=== PATIENT | male | born 1950 | race Caucasian/White ===

== ENCOUNTER 2019-11-30 15:48 | Outpatient (RCR) | payer MEDICARE, OTHER, SELFPAY ==
--- NOTE | 2019-11-30 16:50 | PTOPEVAL ---
Thank you for referring Logan Obrien to [facility]. Please review, sign, date and return this plan of care [facility]. I agree with and certify that the following plan of care is medically necessary. Referring Physician Date Admitting Provider: Attending Provider: Toño Madsen MD Referring Provider: *PT Outpatient Evaluation Start: 11/30/19 16:00 Freq: Status: Active Protocol: Document 11/30/19 16:00 J (Rec: 11/30/19 16:48 [facility] [id number]) Therapy Assessment Status Assessment Status Assessment Status Evaluation Evaluation Information Problem Diagnosis R knee pain Onset 11/27/19 Subjective Information patient reports he has pain in Query Text:As Reported By Patient/ the R knee. he reports he has Family a history of menicus tear 2x with surgery. he reports he has been having pain in the R knee off and on for the past 10 years. however, he reports he has been flared up for about a week. he reports no recent injury to the R knee. he reports he has had an injection to the R knee this week with results of slightly decreased pain. he reports no pain with sleeping. he reports increased pain in the morning . he reports he has increased pain and difficulty walking down his basement stairs. Pain Assessment Timing of Pain Assessment Timing of Pain Assessment Assessment Pain Scale Pain Scale Used Numeric (1 - 10) Self Report Pain Assessment Right Knee(s) Reported Pain Level 6 Pain Description Soreness,Tightness Pain Frequency Chronic,Intermittent Lowest Pain Intensity 3 Greatest Pain Intensity 10 Pain Score Pain Score 6: Self Report Lower Extremity Range of Motion General Lower Extremity Range of Motion Gross Lower Extremity Range of Motion 5 degree bilateral varus Comments deformity of the knees. Knee Range of Motion Right Knee Flexion Range of Motion - Active 104 Knee Extension Range of Motion - Active 5 Query Text: Left Knee Flexion Range of Motion - Active 130 Knee Extension Range of Motion - Active 5 Query Text: Lower Extremity Muscle Strength Testing Hip Strength Bilateral Hip Flexion Strength 4 Good Knee Strength Right Knee Flexion Strength
== END 2019-12-28 10:38 | disposition home or self-care (01) ==
LOC: CHSPT 15:48
PROVIDERS: PCP Internal Medicine; Visit Provider Internal Medicine
DX: M25.561 Pain in right knee (principal)
CPT/HCPCS: 97014; 97110; 97161; G0283

== ENCOUNTER 2020-11-29 15:16 | Outpatient (CLI) | payer MEDICARE, OTHER, SELFPAY ==
--- NOTE | ~2020-11-29 | XR_ITS ---
XR shoulder RT min 2V 11/29/2020 15:48 Indication: Right shoulder pain Procedure: 4 views right shoulder Comparison: No prior studies for comparison. Findings: No fracture, subluxation or dislocation. No significant soft tissue abnormality. No foreign bodies. There is mild osteoarthritis of the acromioclavicular joint. Impression: 1: Mild osteoarthritis of the acromioclavicular joint. Reviewed, dictated and finalized at location B. Impression: 1: Mild osteoarthritis of the acromioclavicular joint.
--- NOTE | ~2020-11-29 | XR_ITS ---
EXAMINATION: XR shoulder LT min 2V DATE: 11/29/2020 15:48 INDICATION: Left shoulder pain. TECHNIQUE: 4 views of left shoulder were obtained. COMPARISON: None. FINDINGS: Bone alignment is normal. No fracture. There is mild osteoarthritis of glenohumeral joint. There are changes of distal clavicle resection. IMPRESSION: 1. Mild left glenohumeral joint osteoarthritis. Reviewed, dictated and finalized at location A.
== END 2020-11-29 15:17 | disposition home or self-care (01) ==
PROVIDERS: PCP Internal Medicine; Visit Provider Internal Medicine
DX: M25.512 Pain in left shoulder (principal); M25.511 Pain in right shoulder
CPT/HCPCS: 73030

== ENCOUNTER 2020-12-19 09:10 | Outpatient (RCR) | payer MEDICARE, OTHER, SELFPAY ==
--- NOTE | 2020-12-19 10:10 | PTOPEVAL ---
Thank you for referring Logan Obrien to [facility].? The patient is scheduled to be seen for therapy? ____x/week for ___ weeks. Please review, sign, date and return this plan of care [facility]. I agree with and certify that the following plan of care is medically necessary. Referring Physician Date Admitting Provider: Attending Provider: Toño Madsen MD Referring Provider: *PT Outpatient Evaluation Start: 12/19/20 08:52 Freq: Status: Active Protocol: Document 12/19/20 08:52 ACR (Rec: 12/19/20 10:09 [facility] [id number]) Therapy Assessment Status Assessment Status Assessment Status Evaluation Evaluation Information Problem Diagnosis B shoulder pain Onset 11/07/20 Subjective Information Patient states a month and a Query Text:As Reported By Patient/ half ago he went to the MD and Family got a cortisone shot in the L shoulder, then had to go back to get a cortisone shot in the R shoulder. The patient states he is getting an MRI for the R shoulder but is unsure when he is getting it. The patient states the R is worse than the L. The patient states he is having difficulty combing his hair, reaching above his head, lifting any objects, and is unable to ride his [employer]. Patient states the pain wakes him up at night . Patient states he has tingling in his L hand, but it has been for 5 years. He states he has some pain in the R armpit region. Prior Level of Function Activity Level (Last 3 Months) Occupation retired Hand Dominance Right Activity of Daily Living Ability Independent Indoor/Home Mobility Independent Community Mobility Independent Stairs Ability Independent Functional Cognition (Planning, Shopping Independent , Taking Medications) Cooking Yes Cleaning Yes Laundry Yes Shopping Yes Driving Yes Pain Assessment Timing of Pain Assessment Timing of Pain Assessment Assessment Pain Scale Pain Scale Used Numeric (1 - 10) Self Report Pain Assessment Left Shoulder(s) Reported Pain Level 0 Pain
--- NOTE | 2020-12-25 10:33 | PCPTNOTE ---
Patient cancelled scheduled appointment this date due to [new complications (bruising) in the R arm. patient had MRI this date. awaiting results, and patient told to hold therapy per referring MD this date until results of MRI are confirmed.]
--- NOTE | 2021-01-10 16:30 | PCPTNOTE ---
Patient is a 70 year old male that participated in 2 skilled therapy visits for B shoulder pain. The patient got an MRI and he has a bicep tendon tear and a rotator cuff tear. Due to this, the patient requires surgery and will be discharged at this time. Thank you, IGGY McadamsT
== END 2020-12-23 18:00 | disposition home or self-care (01) ==
LOC: CHSPT 09:10
PROVIDERS: PCP Internal Medicine; Visit Provider Internal Medicine
DX: M25.512 Pain in left shoulder (principal); M25.511 Pain in right shoulder
CPT/HCPCS: 97014; 97110; 97161; G0283

== ENCOUNTER 2020-12-25 08:59 | Outpatient (CLI) | payer MEDICARE, OTHER, SELFPAY ==
--- NOTE | ~2020-12-25 | MR_ITS ---
EXAMINATION: MR shoulder RT wo con DATE: 12/25/2020 10:05 INDICATION: 6 weeks of right shoulder pain with limited range of motion. TECHNIQUE: Magnetic resonance imaging (MRI) of the right shoulder was performed without intravenous c ontrast. Sequences included axial PD-weighted FS FSE, coronal oblique PD-weighted FS FSE, coronal obl ique T2-weighted FS FSE, sagittal PD-weighted FS FSE, and sagittal T1-weighted SE. COMPARISON: None. FINDINGS: Coracoacromial arch: The acromion undersurface is minimally curved in morphology (type I-II). Small subacromial spur at th e acromial origin of the otherwise normal coracoacromial ligament. Mild to moderate acromioclavicular osteoarthritis with small amount of heterotopic ossification along the thickened cephalad joint caps ule. Rotator cuff: Mild supraspinatus and moderate infraspinatus tendinopathy. There is a full-thickness tear at the cri tical zone of the supraspinatus tendon with the lateral margin located 2 cm from the superior facet f ootplate. There is an additional 1.8 cm medial retraction of the medial tear margin. The tear continu es to propagate more posteriorly is a partial-thickness articular sided tear of the posterior suprasp inatus and anterior infraspinatus tendons and involves up to 50% the tendon thickness. The teres phyllis r tendon is normal. Anteriorly the full-thickness supraspinatus tendon tear extends to involve the en tire cephalad two thirds of the subscapularis tendon footplate with the tear margin retracted 2.5-3 c m medially from the lesser tuberosity footplate. Severe tendinopathy of the remaining intact caudal t hird of the tendon. Normal there is retraction and mild fatty atrophy of the supraspinatus muscle bel ly. Retraction and severe atrophy of the subscapularis muscle belly. The infraspinatus and teres phyllis r muscle bellies are normal. Biceps tendon, glenoid labrum and glenohumeral cartilage: Complete tear of the long head biceps tendon which is retracted below the level of the intertubercula r groove. Extensive tear of the superior and posterior glenoid labrum beginning anterosuperiorly at t he Glenoid labrum is normal. Glenohumeral cartilage is normal. 1:30 position and extending posteriorl y and inferiorly to the 6:30 position. 8 x 8 x 6 mm para meniscal cyst extending medially from the 11 :00 position of the posterior superior labrum. There is a small intraosseous ganglion cyst at the 8:0 0 region of the posterior rim of the glenoid. There is some chondral fissuring at the anterosuperior quadrant of the glenoid without degenerative subchondral changes. Partial-thickness cartilage loss wi th smooth chondral surface along the inferomedial and superolateral aspects of the humeral head also without degenerative subchondral changes. Fluid: Small glenohumeral joint effusion with mild synovitis at the recesses of the joint space. There is ex tension of fluid through the full-thickness rotator cuff tear into the subacromial/subdeltoid bursa. No loose osteochondral bodies. Bones: Normal marrow signal with no fracture or pathologic marrow replacing process. IMPRESSION: 1. Large rotator cuff tear, full-thickness involving the cephalad two thirds of the subscapularis and the anterior two thirds of the supraspinatus tendon with additional posterior extension as a partial -thickness articular sided of the remaining posterior supraspinatus and the anterior infraspinatus te ndon. 2. Mild glenohumeral osteoarthritis with tear extending from the anterosuperior across the posterior superior to the posterior inferior glenoid with small posterior superior meniscal cyst. 3. Mild to moderate glenohumeral osteoarthritis with prominent superior capsular thickening. 4. Complete tear and caudal retraction of the long head biceps tendon. 5. Small right glenohumeral joint effusion.
== END 2020-12-25 09:00 | disposition home or self-care (01) ==
LOC: CHSIMG 09:01
PROVIDERS: PCP Internal Medicine; Visit Provider Internal Medicine
DX: M25.511 Pain in right shoulder (principal)
CPT/HCPCS: 73221

== ENCOUNTER 2021-01-22 14:15 | Emergency (ER) | payer MEDICARE, OTHER, SELFPAY ==
--- NOTE | ~2021-01-22 | XR_ITS ---
EXAMINATION: XR shoulder LT min 2V DATE: 01/22/2021 14:57 INDICATION: Twisting injury with audible pop and lump at the superior left shoulder TECHNIQUE: AP internally and externally rotated, AP oblique externally rotated and transscapular Y vi ews of the left shoulder were obtained. COMPARISON: 11/29/20 FINDINGS: Postoperative change of prior distal left clavicle resection. There is also a likely prior acromiopla sty with small heterotopic ossicles near the anterior tip of the acromion. Alignment is normal. No fr acture. Glenohumeral joint space appears relatively preserved with tiny marginal osteophytes about th e inferior humeral head. Visualized portions of the left lung are clear. IMPRESSION: 1. Mild left glenohumeral osteoarthritis. No acute osseous abnormality. 2. Postoperative change of prior distal left clavicle resection and likely acromioplasty. Reviewed, dictated and finalized at location A. IMPRESSION: 1. Mild left glenohumeral osteoarthritis. No acute osseous abnormality. 2. Postoperative change of prior distal left clavicle resection and likely acro mioplasty.
[2021-01-22 14:30] VITALS: BP 176/91; PULSE 94; RESP 20; TEMP 36.7; O2SAT 97
[2021-01-22] MEDS: fentaNYL CITRATE INJ (*CRX) 100 MCG/2 ML VIAL 50 MCG IV PUSH (14:48)
--- NOTE | 2021-01-22 15:06 | ED.GENADULT ---
HPI - General Adult General Chief complaint: Extremity Injury, Upper Stated complaint: pulled L shoulder out of place Source: patient Mode of arrival: ambulatory Limitations: no limitations History of Present Illness HPI narrative: Logan is a 70M with a PMH of left rotator cuff tear s/p surgery, HLD and HTN that presented to the ED with left shoulder pain. He was pushing something in his garage just before coming to the ED when he had a pop and pain in his left shoulder and a bulge. He had no other injuries. Related Data Home Medications Medication Instructions Recorded Confirmed metronidazole See Rx Instructions .ROUTE .COMPLEX 01/22/21 01/22/21 ramipril 5 mg PO DAILY 01/22/21 01/22/21 rosuvastatin 5 mg PO DAILY 01/22/21 01/22/21 spironolacton-hydrochlorothiaz 1 tablet PO DAILY 01/22/21 01/22/21 testosterone [Fortesta] 1 pump TOPICAL DAILY 01/22/21 01/22/21 Allergies Allergy/AdvReac Type Severity Reaction Status Date / Time Penicillins Allergy Unknown Verified 01/22/21 15:24 Review of Systems Constitutional: Constitutional: Reports no additional constitutional complaints Eyes: Eyes: Reports no additional eye complaints ENT: Reports system reviewed and no additional complaints, except as documented Cardiovascular: Cardiovascular: Reports no additional cardiovascular complaints Respiratory: Respiratory: Reports no additional respiratory complaints Gastrointestinal: Gastrointestinal: Reports no additional gastrointestinal complaints Genitourinary: Genitourinary: Reports no additional male genitourinary complaints Musculoskeletal: Musculoskeletal: Reports as per HPI Integumentary/Breasts: Skin/Breast: Reports system reviewed and no additional complaints, except as docu Neurologic: Reports system reviewed and no additional complaints, except as documented Psychiatric: Psychiatric: Reports no additional psychiatric complaints Endocrine: Endocrine: Reports no additional endocrine complaints Hematologic/Lymphatic: Hematologic/Lymphatic: Reports no additional hematologic/lymphatic complaints Allergic/Immunologic: Allergic/Immunologic: Reports no additional allergic/immunologic complaints [facility] Social History Social History Gender identity (if verbalized by the patient): Male Exam Const: General: no acute distress and alert Orientation/consciousness: patient oriented x3 Limitations: No altered mental status HENMT: Head: normal to inspection Mouth: Yes Normal oral and palatal mucosa present Eyes: Conjunctivae: conjunctivae normal Pupils: Equal, round and reactive pupils present Neck: Neck: normal visual inspection Chest: Chest palpation & inspection: normal inspection of the chest Resp: Effort & Inspection: normal respiratory effort Cardio: Rate: regular rate Skin: General skin exam: normal color Rashes: no rashes Neuro: General: patient oriented x3, moves all extremities, no meningeal signs, no focal motor deficits and CN's II-XI intact bilaterally Extrem: Other: Left upper extremity was held in adduction and the elbow in 90 degrees flexion against the chest with an anterior/inferior bulge on the left shoulder Psych: Appearance: grossly normal Mental Status: mental status grossly normal Course Course Emergency Course: Given 50mcg for the pain. EXAMINATION: XR shoulder LT min 2V DATE: 01/22/2021 14:57 INDICATION: Twisting injury with audible pop and lump at the superior left shoulder TECHNIQUE: AP internally and externally rotated, AP oblique externally rotated and transscapular Y views of the left shoulder were obtained. COM FINDINGS: Postoperative change of prior distal left clavicle resection. There is also a likely prior acromioplasty with small heterotopic ossicles near the anterior tip of the acromion. Alignment is normal. No fracture. Glenohumeral joint space appears relatively preserved with tiny marginal osteophytes about
[2021-01-22 15:33] VITALS: BP 139/78; PULSE 79; RESP 20; TEMP 36.7; O2SAT 97
== END 2021-01-22 15:35 | disposition home or self-care (01) ==
PROVIDERS: Emergency Provider Family Medicine; PCP Internal Medicine
DX: M75.102 Unspecified rotator cuff tear or rupture of left shoulder, not specified as traumatic (principal)
CPT/HCPCS: 73030; 96374; 99283; 99284; A4565; J3010

== ENCOUNTER 2021-02-01 10:37 | Outpatient (CLI) | payer MEDICARE, OTHER, SELFPAY ==
--- NOTE | ~2021-02-01 | MR_ITS ---
EXAMINATION: MR shoulder LT wo con DATE: 02/01/2021 11:29 INDICATION: Weakness and left shoulder pain TECHNIQUE: Magnetic resonance imaging (MRI) of the left shoulder was performed without intravenous co ntrast. Sequences included axial PD-weighted FS FSE, coronal oblique PD-weighted FS FSE, coronal obli que T2-weighted FS FSE, sagittal PD-weighted FS FSE, and sagittal T1-weighted SE. COMPARISON: Left shoulder radiographs dated 01/22/2021 FINDINGS: Evaluation mildly limited by small amount of motion artifact or blurring to some degree on all sequen manfred. Coracoacromial arch: The acromion undersurface is curved in morphology (type II). There is mild thickening of the acromial side of the coracoacromial ligament. Status post distal clavicle resection with widening of the acro mioclavicular interval and small foci of postoperative susceptibility artifact in the overlying soft tissues. Rotator cuff: Severe supraspinatus and infraspinatus tendinopathy. Full-thickness tear which appears to involve the entire supraspinatus and the anterior two thirds of the infraspinatus tendon. The tears occur along the critical zone approximately 1 cm from the footplate with residual frayed tendon material remainin g attached to the footplate. There is approximately 2 cm medial retraction of the frayed medial tear margin which is positioned over the apex of the humeral head. The teres minor tendon is normal. Sever e subscapularis tendinopathy with complete tear of the lesser tuberosity footplate with the bursal si de of the tendon remains tethered laterally by the intact transverse humeral ligament. Similar approx imately 2 cm medial retraction of the articular side of the tear margin which is located at the level of the rim of the glenoid. There is prominent muscular edema within the infraspinatus muscle belly w hich could be reactive or related to associated strain along the myotendinous junction. Moderate atro phy of the subscapularis muscle and mild supraspinatus atrophy. Biceps tendon, glenoid labrum and glenohumeral cartilage: Complete tear of the intra-articular long head biceps tendon with the distal tear margin appearing fr ayed and attenuated at the level of the intertubercular groove. Diffuse tear of the glenoid labrum sp aring only the 3:00-6:30 position of the anteroinferior glenoid labrum. There is partial thickness ch ondral ulceration along the cephalad third of the glenoid and along the posterior rim gallbladder. Th ere is mild subarticular edema at the posterior superior to posterior rim of the glenoid. Cartilage a long the humeral head appears relatively preserved with tiny marginal osteophytes along the inferomed ial rim of the humeral head. Fluid: Small amount of fluid in the subacromial/subdeltoid bursa could be due to either bursitis or decompre ssion of glenohumeral joint effusion through the full-thickness rotator cuff tear defect. No loose os teochondral bodies. Bones: Bone alignment is normal. No fracture or pathologic marrow replacing process. IMPRESSION: 1. Severe rotator cuff tendinopathy with full-thickness tear of the entire supraspinatus and anterior two thirds of the infraspinatus tendon and high-grade partial tear involving all but the bursal side d fibers of the subscapularis tendon. 2. Mild left glenohumeral osteoarthritis with diffuse labral tearing sparing along the anteroinferior glenoid. 3. Status post distal left clavicle resection. Reviewed, dictated and finalized at location A. IMPRESSION: 1. Severe rotator cuff tendinopathy with full-thickness tear of the entire supr aspinatus and anterior two thirds of the infraspinatus tendon and high-grade pa rtial tear involving all but the bursal sided fibers of the subscapularis tendo n.
== END 2021-02-01 10:38 | disposition home or self-care (01) ==
LOC: CHSIMG 10:38
PROVIDERS: PCP Internal Medicine; Visit Provider Internal Medicine
DX: M25.512 Pain in left shoulder (principal); R53.1 Weakness
CPT/HCPCS: 73221

== ENCOUNTER 2021-04-28 12:59 | Outpatient (RCR) | payer MEDICARE, OTHER, SELFPAY ==
--- NOTE | 2021-04-28 14:06 | PTOPEVAL ---
Thank you for referring Logan Obrien to [facility].? The patient is scheduled to be seen for therapy? ____x/week for ___ weeks. Please review, sign, date and return this plan of care [facility]. I agree with and certify that the following plan of care is medically necessary. Referring Physician Date Admitting Provider: Attending Provider: Elias Guallpa, MD Referring Provider: *PT Outpatient Evaluation Start: 04/28/21 13:05 Freq: Status: Active Protocol: Document 04/28/21 13:05 [facility] (Rec: 04/28/21 14:04 [facility] [id number]) Therapy Assessment Status Assessment Status Assessment Status Evaluation Outpatient Past Medical History Cardiovascular History Hx Hypercholesterolemia Yes Evaluation Information Problem Diagnosis L rotator cuff tear, capsular reconstruction Onset 03/06/21 Additional Evaluation Detail quick dash = 40% functionally declined Subjective Information patient reports he injured his Query Text:As Reported By Patient/ showinstonler back in December of this Family year. he had L rotator cuff repair and capsular recontruction on 03/06/21. he reports he was in a sling for several weeks and is now coming to therapy for rehab. patients orders shows arom, aarom, and prom only of the L shoulder at this time. no strengthening. Prior Level of Function Comments Additional Prior Level of Function patient has had issues with Comments the shoulder in the past, and has been injured since December of this year. he reports prior to December, no issues with the L shoulder. Pain Assessment Timing of Pain Assessment Timing of Pain Assessment Assessment Pain Scale Pain Scale Used Numeric (1 - 10) Self Report Pain Assessment Left Shoulder(s) Reported Pain Level 6 Greatest Pain Intensity 8 Pain Score Pain Score 6: Self Report Interventions Used Interventions Used By Clinicians Activity or ADL's,Education, Exercise Upper Extremity Range of Motion General Upper Extremity Range of Motion Gross Upper Extremity Range of Motion R shoulder arom flex = 153 Comments degrees -prom flex = 155 degrees R shoulder arom ER = 85 degrees R shoulde
--- NOTE | 2021-06-16 15:14 | PTOPEVAL ---
Thank you for referring Logan Obrien to [facility].? The patient is scheduled to be seen for therapy? _2___x/week for 8 visits. Please review, sign, date and return this plan of care [facility]. I agree with and certify that the following plan of care is medically necessary. Referring Physician Date Admitting Provider: Attending Provider: Elias Guallpa, Referring Provider: *PT Outpatient Evaluation Start: 04/28/21 13:05 Freq: Status: Active Protocol: Document 06/16/21 13:00 [facility] (Rec: 06/16/21 15:09 [facility] [id number]) Therapy Assessment Status Assessment Status Assessment Status Progress Outpatient Past Medical History Cardiovascular History Hx Hypercholesterolemia Yes Evaluation Information Problem Subjective Information Pt. reports that his pain Query Text:As Reported By Patient/ levels were continuing to Family decrease, however he fell and bump the right shoulder but noticed increased left shoulder pain. He reports that his bigesst complcation is weakness with reaching overhead. He states that he would like to continue to focus on improving his strength. Pain Assessment Timing of Pain Assessment Timing of Pain Assessment Assessment Pain Scale Pain Scale Used Numeric (1 - 10) Self Report Pain Assessment Left Shoulder(s) Reported Pain Level 2 Pain Score Pain Score 2: Self Report Interventions Used Interventions Used By Clinicians Activity or ADL's,Education, Electrical Stimulation, Exercise,Heat Upper Extremity Range of Motion General Upper Extremity Range of Motion Gross Upper Extremity Range of Motion -left shoulder flexion AROM Comments seated 148 degrees with increased scapular elevation noted at mid range -Pt. reaches to the CT junction with combined left shoulder flexion and ER -Pt. reaches to the mid thoracic region with combined left shoulder IR and extension . Upper Extremity Muscle Strength Testing General Upper Extremity Strength Gross Upper Extremity Strength Comments -left shoulder flexion 3/5 -left shoulder ER 3+/5 -left shoulder IR 4/5 -left shoulder abduction 3/5 General Exercise General
--- NOTE | 2021-07-18 14:48 | PTOPEVAL ---
Thank you for referring Logan Obrien to [facility] [place].? The patient is scheduled to be seen for therapy? ____x/week for ___ weeks. Please review, sign, date and return this plan of care KSENIA. I agree with and certify that the following plan of care is medically necessary. Referring Physician Date Admitting Provider: Attending Provider: Elias Guallpa, Referring Provider: *PT Outpatient Evaluation Start: 04/28/21 13:05 Freq: Status: Active Protocol: Document 07/18/21 13:10 ACR (Rec: 07/18/21 14:48 ACR [id number]) Therapy Assessment Status Assessment Status Assessment Status Progress Outpatient Past Medical History Cardiovascular History Hx Hypercholesterolemia Yes Evaluation Information Problem Diagnosis L RTC repair Onset 03/06/21 Subjective Information Patient states that he is Query Text:As Reported By Patient/ feeling pretty good but it is Family still pretty weak. He states that lifting a gallon of milk is pretty difficult for him. He states that he can raise his arm above his head, but it is weak. Patient feels that he can do everything at home and states that he knows he has more healing ahead of him. Pain Assessment Timing of Pain Assessment Timing of Pain Assessment Assessment Pain Scale Pain Scale Used Numeric (1 - 10) Self Report Pain Assessment Left Shoulder(s) Reported Pain Level 0 Lowest Pain Intensity 0 Greatest Pain Intensity 5 Pain Score Pain Score 0: Self Report Interventions Used Interventions Used By Clinicians Activity or ADL's,Exercise Upper Extremity Range of Motion General Upper Extremity Range of Motion Gross Upper Extremity Range of Motion shoulder flexion L AROM: 153 Comments with shoulder elevation noted ER functional reach: CT junction IR functional reach: to mid thoracic region Lower Extremity Muscle Strength Testing General Lower Extremity Strength Gross Lower Extremity Strength L shoulder flexion: 3/5 L shoulder ER: 3+/5 L shoulder IR: 4/5 L shoulder abduction General Exercise General Exercises Exercise Description -lifting 2lb ball on 3 shelves Query Text:Record Sets, Reps, with assist to attain top Resistance, and Position shelf and eccentric control back down x 10 and then x 5
== END 2021-07-18 15:38 | disposition home or self-care (01) ==
LOC: CHSPT 12:59
PROVIDERS: Visit Provider Orthopaedic Surgery Hand Surgery
DX: M75.121 Complete rotator cuff tear or rupture of right shoulder, not specified as traumatic (principal)
CPT/HCPCS: 97014; 97110; 97161; 97530; G0283

== ENCOUNTER 2021-11-10 13:55 | Outpatient (CLI) | payer MEDICARE, OTHER, SELFPAY ==
[2021-11-10 15:36] LABS: Basophils Absolute Auto 0.1 K/mm3 (0.0-0.1); Basophils Percent Auto 0.7 % (0.2-1.2); Eosinophils Absolute Auto 0.1 K/mm3 (0-0.3); Eosinophils Percent Auto 1.2 % (0-4.4); Hematocrit 42.1 % (42.0-52.0); Immature Granulocyte Absolute 0.05 K/mm3 (0.00-0.031); Immature Granulocyte Percent A 0.6 % (0-0.5); Lymphocytes Absolute Auto 1.19 K/mm3 (0.9-3.2); Lymphocytes Percent Auto 13.9 % (18.3-44.2); Mean Corpuscular HGB Conc 33.3 g/dl (32-36); Mean Corpuscular Hemoglobin 28.9 pg (26-34); Mean Platelet Volume 9.3 fl (7.4-10.4); Monocytes Absolute Auto 0.7 K/mm3 (0.1-0.6); Monocytes Percent Auto 8.6 % (2.6-8.5); Neutrophils Absolute Auto 6.5 K/mm3 (1.3-6.7); Platelet Count Result 201 k/mm3 (150-375); Red Blood Count 4.84 M/mm3 (4.6-6.20); Red Cell Distribution Width 14.5 % (11.5-14.5); White Blood Count 8.6 K/mm3 (4.5-10.0)
[2021-11-10 15:55] LABS: Albumin Level 4.7 g/dL (3.5-5.1); Anion Gap 5 mmol/L (8-16); Blood Urea Nitrogen 29 mg/dL (9-20); Calcium 10.2 mg/dL (8.4-10.2); Carbon Dioxide 31 mmol/L (22-30); Chloride 99 mmol/L (98-107); Estimated Glomerular Filt Rate 60; Glucose 111 mg/dL (65-110); Sodium 135 mmol/L (137-145)
[2021-11-10 16:04] LABS: Urine Cotinine NEGATIVE
[2021-11-10 16:09] LABS: Hemoglobin A1C 5.8 % (<5.7)
== END 2021-11-10 13:56 | disposition home or self-care (01) ==
PROVIDERS: PCP Internal Medicine; Visit Provider Orthopaedic Surgery
DX: M17.11 Unilateral primary osteoarthritis, right knee (principal); Z01.818 Encounter for other preprocedural examination
CPT/HCPCS: 80048; 80307; 82040; 83036; 85025; 87070

== ENCOUNTER 2021-11-17 08:54 | Outpatient (CLI) | payer MEDICARE, OTHER, SELFPAY ==
--- NOTE | 2021-11-17 10:30 | EST_ITS ---
Patient Info Name: Logan Obrien Age: 71 years : 1950 Gender: Male Ht: 70 in Wt: 170 lbs BSA: 1.96 m2 Heart Rhythm: Left Bundle Branch Block Exam Date: 11/17/2021 10:55 AM Exam Location: [facility] Patient Status: Outpatient Admit Date: 11/17/2021 Staff Ordering Physician: Adam Schafer MD Attending Provider: Adam Schafer MD Exam Type: CA stress mervin w NM Study Info A regadenoson stress test was performed. History/Risk Factors Hypertension: Yes Myocardial Infarction (IN): Yes Tobacco Use: Former History/Risk Factors CAD, HTN. Summary 1. 1. Inconclusive lexiscan stress test for ischemic ST changes by ECG criteria due to baseline LBBB. 2. 2. Stable hemodynamics throughout the test. 3. 3. Nuclear scan to follow and will be reported separately. Please correlate with it. Protocol: LEXISCAN Stress ECG Details Stage: REST Duration (min): 1 min : 55 sec HR (bpm): 59 SBP (mmHg): 110 DBP (mmHg): 66 Stage: REST Duration (min): 4 min : 34 sec HR (bpm): 59 SBP (mmHg): 110 DBP (mmHg): 66 Stage: STAGE 1 Duration (min): 0 min : 14 sec HR (bpm): 59 SBP (mmHg): 110 DBP (mmHg): 66 Stage: RECOVERY Duration (min): 0 min : 45 sec HR (bpm): 85 SBP (mmHg): 110 DBP (mmHg): 66 Stage: RECOVERY Duration (min): 1 min : 45 sec HR (bpm): 80 SBP (mmHg): 113 DBP (mmHg): 68 Stage: RECOVERY Duration (min): 2 min : 45 sec HR (bpm): 77 SBP (mmHg): 120 DBP (mmHg): 61 Stage: RECOVERY Duration (min): 3 min : 45 sec HR (bpm): 72 SBP (mmHg): 115 DBP (mmHg): 60 Stage: RECOVERY Duration (min): 4 min : 45 sec HR (bpm): 76 SBP (mmHg): 117 DBP (mmHg): 64 Stage: RECOVERY Duration (min): 5 min : 46 sec HR (bpm): 73 SBP (mmHg): 122 DBP (mmHg): 64 Stage: RECOVERY Duration (min): 6 min : 18 sec HR (bpm): 69 SBP (mmHg): 122 DBP (mmHg): 64 Rest HR: 59 bpm Peak HR: 88 bpm Rest Sys BP: 110 mmHg Peak Sys BP: 122 mmHg Max Pred HR: 149 bpm % Max Pred HR: 59 % Target HR: 127 bpm Max RPP: 10,736 bpm*mmHg Termination Reason: Completed Protocol Cardiac Symptoms: None Total Time: 0 min : 14 sec Rest Hudson BP: 66 mmHg Peak Hudson BP: 64 mmHg Total Dose: 0.4 mg Resting ECG Sinus bradycardia, first degree AV block, LBBB. Stress ECG No ST changes. Arrhythmias No arrhythmias were observed during the examination. Report Signatures
--- NOTE | 2021-11-17 15:34 | WPDCARIOSTRE ---
Nuclear Stress Test INDICATIONS Indications: BERMUDEZ, preop PROCEDURE Procedure Performed: Myocardial Perf Spect-Multi Procedure: Patient underwent a lexiscan stress test and immediately was injected with 30 mCi of cardiolyte. Multiple tomographic images were obtained. These are of good quality. There is evidence of moderate size, mild septal and moderate size, anterior perfusion defects during stress imaging. A separate resting images were obtained after patient was injected with 10.2 mCi cardiolyte. Multiple tomographic images were obtained. These are of good quality. There is evidence of moderate size, mild septal and moderate size, anterior perfusion defects during stress imaging. CONCLUSION Conclusion: 1. Myocardial perfusion imaging demonstrating fixed anterior and septal perfusion defects so of attenuation artifacts. 2. No evidence of reversible ischemia. 3. Left ventriculogram demonstrate normal measured ejection fraction of 57%. 4. TID score is normal at 0.92.
--- NOTE | 2021-11-17 15:37 | NST_ITS ---
This report was recreated on December 02, 2021 to make a correction to the Conclusion section of the report as shown below. Original report was signed by Dr. Fabricio Do on November 17, 2021 at 15:37. Nuclear Stress Test INDICATIONS Indications: BERMUDEZ, preop PROCEDURE Procedure Performed: Myocardial Perf Spect-Multi Procedure: Patient underwent a lexiscan stress test and immediately was injected with 30 mCi of cardiolyte. Multiple tomographic images were obtained. These are of good quality. There is evidence of moderate size, mild septal and moderate size, anterior perfusion defects during stress imaging. A separate resting images were obtained after patient was injected with 10.2 mCi cardiolyte. Multiple tomographic images were obtained. These are of good quality. There is evidence of moderate size, mild septal and moderate size, anterior perfusion defects during stress imaging. CONCLUSION Conclusion: 1. Myocardial perfusion imaging demonstrating fixed anterior and septal perfusion defects -s-o- suggested of attenuation artifacts. 2. No evidence of reversible ischemia. 3. Left ventriculogram demonstrate normal measured ejection fraction of 57%. 4. TID score is normal at 0.92. Dictated By: Fabricio Do DO 11/17/21 1534 Signed By: <Electronically signed by Fabricio Do DO> 11/17/21 1537 [facility]
== END 2021-11-17 08:55 | disposition home or self-care (01) ==
LOC: CHSIMG 08:57
PROVIDERS: PCP Internal Medicine; Visit Provider Internal Medicine Cardiovascular Disease
DX: I25.10 Atherosclerotic heart disease of native coronary artery without angina pectoris (principal); I10 Essential (primary) hypertension; I44.7 Left bundle-branch block, unspecified; I25.2 Old myocardial infarction; Z01.810 Encounter for preprocedural cardiovascular examination
CPT/HCPCS: 78452; 93017; A9502; J2785

== ENCOUNTER 2021-11-26 01:21 | Day surgery (SDC) | payer MEDICARE, OTHER, SELFPAY ==
[2021-11-10 14:09] VITALS: BMI 23.7
--- NOTE | 2021-11-10 14:29 | PC.NURSE ---
Report to the Outpatient Waiting Room, entrance under the green pavilion located off [facility], at time _1000 on date __11/26/21 . OR Time: __1200 . - You and your visitor will be asked a series of questions to screen for COVID 19 for your protection. - Only one visitor is allowed at this time. - The patient visitor is requested to leave or wait in car when not with patient. - A mask is required within the hospital. Patients may have clear liquids (water, carbonated beverages, clear teas, apple juice) until 3 hours prior to surgery with a maximum of 20 ounces. - No food from midnight until time of surgery - Infants may have breast milk until 4 hours before surgery, infant formula 6 hours prior to surgery. - Children will be allowed to drink immediately following surgery. If applicable, please bring a bottle or sippy cup to assist with drinking. Juice, water, soda, and popsicles are readily available. For infants on formula, please bring formula the day of surgery. Pacifiers are allowed. Take the following medications with a SIP of water the morning of surgery: NONE Medications to discontinue per physician ASPIRIN 7 DAYS PRE OP PER DR CABRAL.,ALL VITAMINS AND SUPPLEMENTS 3 DAYS PRE OP Date to take last dose_ASPIRIN 11/18/21 VITAMINS/SUPPLEMENTS 11/22/21 Please no make-up, nail slovenian, hairspray, perfume, deodorant, or body powder the day of surgery. No jewelry (including any body piercings) or valuables the day of surgery, leave them at home. Please take a shower or bath the night before, or the morning of, surgery with an antibacterial soap. Wear comfortable, loose fitting clothing. Children are encouraged to wear pajamas. - Jewelry must be removed prior to entering the operating room. Rings and piercings that are not removed may be cut off. - The hospital will not accept responsibility for valuables. - Please leave all valuables, including medications, at home the day of surgery. If you are going home after surgery, a licensed bulk tank driver must drive you home. - NO public transportation without another adult. - We recommend that an adult stay with you for 24 hours following discharge. - We also recommend that you do not drive, make important decision, drink alcoholic beverages, or take any drugs that were not prescribed by your health care provider for at least 24 hours after your discharge time. For Pediatric surgeries, we recommend two adults accompany the child home (only one inside the building at this time). Follow any additional instructions given to you from your surgeon. If you or anyone in your household have experienced Covid symptoms in the past week, please notify your surgeon or the nurse liaison at the phone number below for possible testing. VERBAL AND WRITTEN instructions given to _PATIENT and asked if any additional questions and then verbalized understanding. Patient advised to call surgeon office or pre surgery nurse liaison [phone] if any additional questions.
[2021-11-10 14:46] VITALS: BP 125/63; PULSE 70; RESP 18; TEMP 36.8; O2SAT 97
[2021-11-26] VITALS (12 sets, daily range): BP systolic 100–129; BP diastolic 49–81; PULSE 56–80; RESP 8–16; TEMP 36.4–37.3; O2SAT 94–100
--- NOTE | ~2021-11-26 | XR_ITS ---
EXAM: XR knee RT 2V DATE: 11/26/2021 16:57 HISTORY: RT TOTAL KNEE . COMPARISON: 08/02/2018. FINDINGS: Interval right total knee arthroplasty. Hardware normally aligned. Lucent area in the medu llary space of the distal femur possibly from prior trial fitting. Expected postsurgical changes in t he soft tissues. No unexpected radiopaque foreign body. IMPRESSION: Right total knee arthroplasty, without radiographic evidence of hardware or procedure rel ated complication. Reviewed, dictated and finalized at location K. IMPRESSION: Right total knee arthroplasty, without radiographic evidence of jacqueline dware or procedure related complication.
--- NOTE | 2021-11-26 08:29 | PM.IMHP ---
H&P: HPI History of Present Illness Date/Time: 11/26/21 08:29 Chief Complaint: Right knee DJD Narrative: 71-year-old male patient of Dr. Madsen who presents today for a right total knee arthroplasty. He has been having pain in this knee for years. He has had 2 prior knee arthroscopies to this knee. He has advanced medial compartment osteoarthritis. He had cortisone injection in the knee August 06 of this year which only helped for about 2 weeks. He is miserable on a daily basis and feels this point is ready to proceed with total knee arthroplasty. [facility] Social History Social History Smoking packs per day: 0.5 Smoking cigarettes per day: 10.0 Years smoked: 3 Smoking pack-years: 1.50 Smoking status: Former smoker Tobacco type: cigarettes Smoking end date: 06/07/79 Additional smoking assessment comments: DENIES ANY FORM OF TOBACCO USE Living arrangements: alone Gender identity (if verbalized by the patient): Male Spiritual care concerns: No Meds Home Medications and Allergies Home Medications Medication Instructions Recorded Confirmed Type metronidazole 0.75 % topical gel See Rx Instructions .Route .COMPLEX 01/22/21 11/10/21 History ramipril 5 mg capsule 5 mg PO DAILY 01/22/21 11/10/21 History rosuvastatin 5 mg tablet 5 mg PO DAILY 01/22/21 11/10/21 History spironolactone 25 1 tablet PO DAILY 01/22/21 11/10/21 History mg-hydrochlorothiazide 25 mg tablet testosterone 10 mg/0.5 1 pump topical DAILY 01/22/21 11/10/21 History gram/actuation transdermal gel pump (Fortesta) acetaminophen 650 mg 500 mg PO PRN PRN Pain 11/10/21 11/10/21 History tablet,extended release (Tylenol 8 Hour) aspirin 81 mg tablet 81 mg PO DAILY 11/10/21 11/10/21 History multivitamin 1 tablet PO DAILY 11/10/21 11/10/21 History Allergies Allergy/AdvReac Type Severity Reaction Status Date / Time Penicillins Allergy Rash Verified 11/10/21 14:10 Exam Narrative: 71-year-old male alert pleasant. He is 5 ft 10 185 lb. Right knee range of motion is from 0-110 degrees. Mild effusion. He has a prominent popliteal cyst. Mild varus /valgus laxity. He has multiple varicose veins in the distal 1/3 of the calf. Skin is all intact. No edema in lower extremities. 2+ posterior tibial artery pulse absent dorsalis pedis pulse. Normal sensation the lower extremity. Hip range of motion is full without discomfort negative Stinchfield maneuver. Normal quad strength. Resp: Auscultation: clear to auscultation bilaterally Cardio: Rate: regular rate Rhythm: regular rhythm Assessment and Plan Additional Plan 71-year-old male who has advanced medial compartment osteoarthritis with significant symptoms on a daily basis. Again he feels he is ready proceed with total knee arthroplasty. His nasal swab was negative. His Chem panel creatinine 1.20 GFR still 60. Wrist his Chem panel is within normal limits. Hemoglobin is 14.0 platelets 201. Patient will see his primary care doctor for pre-surgical clearance. Avoid Ibuprofen products 1 week prior to surgery. He does take a baby aspirin daily and will continue with this due to the fact he had an AL in the past.. He has seen cardiology did have a stress test done on 11/17. He had no evidence of reversible ischemia. Ejection fraction was 57%. He has been cleared through Cardiology as well. Surgical procedure as well as risks and complications were discussed in detail all questions were answered and we will proceed.
[2021-11-26] MEDS: ACETAMINOPHEN 500 MG TABLET 1000 MG PO (10:10)
[2021-11-26] MEDS: LACTATED RINGERS 1,000 ML 30 ML IV CONT ×2 (10:24→16:45)
--- NOTE | 2021-11-26 11:02 | WPDANESEPPF ---
Anes - Initial Pre Proc Eval Procedure: Operation Date: 11/26/21 12:00 Proposed Procedures p Right Total Knee Arthroplasty - Reinaldo Riddle MD Date/Time: 11/26/21 11:02 Surgeon: Reinaldo Riddle MD Pre Op Diagnosis: rt knee oa Patient Data Age: 71 Gender: M Height: 1.78 m Weight: 75.4 kg Last Vital Signs Temp 36.8 C 11/10/21 14:46 Pulse 70 11/10/21 14:46 Resp 18 11/10/21 14:46 BP 125/63 11/10/21 14:46 Pulse Ox 97 11/10/21 14:46 O2 Del Method Room Air 11/10/21 14:46 Allergies Allergy/AdvReac Type Severity Reaction Status Date / Time Penicillins Allergy Rash Verified 11/26/21 09:56 Home Medications Medication Instructions Recorded Confirmed Type metronidazole 0.75 % topical gel See Rx Instructions .Route .COMPLEX 01/22/21 11/26/21 History ramipril 5 mg capsule 5 mg PO DAILY 01/22/21 11/26/21 History rosuvastatin 5 mg tablet 5 mg PO DAILY 01/22/21 11/26/21 History spironolactone 25 1 tablet PO DAILY 01/22/21 11/26/21 History mg-hydrochlorothiazide 25 mg tablet testosterone 10 mg/0.5 1 pump topical DAILY 01/22/21 11/26/21 History gram/actuation transdermal gel pump (Fortesta) acetaminophen 650 mg 500 mg PO PRN PRN Pain 11/10/21 11/26/21 History tablet,extended release (Tylenol 8 Hour) aspirin 81 mg tablet 81 mg PO DAILY 11/10/21 11/26/21 History multivitamin 1 tablet PO DAILY 11/10/21 11/26/21 History Patient hx anesthesia problems: none Family hx anesthesia problems: none Results Review: All pre-operative results and documents have been reviewed as part of the pre-operative evaluation. [facility] Past Medical History Medical History (Updated 11/26/21 @ 11:02 by Hilario Alicea MD) HTN (hypertension) Hyperlipidemia Surgical History Surgical History (Updated 11/26/21 @ 11:05 by Hilario Alicea MD) H/O arthroscopic knee surgery History of appendectomy History of shoulder surgery Social History Social History Smoking packs per day: 0.5 Smoking cigarettes per day: 10.0 Years smoked: 3 Smoking pack-years: 1.50 Smoking status: Former smoker Tobacco type: cigarettes Smoking end date: 06/07/79 Additional smoking assessment comments: DENIES ANY FORM OF TOBACCO USE Living arrangements: alone Gender identity (if verbalized by the patient): Male Spiritual care concerns: No Anes - Eval Final PreProcedure Day of Procedure 11/26/21 11:02 Patient weight: normal Heart: regular rate and rhythm Lungs: clear to auscultation Airway: Mallampati scale class II Neurological: alert and oriented Last oral intake: >/= 8 hours ASA classification: II Emergent: no Anesthetic plan: proceed Anesthesia type and monitoring: general ETT and standard monitoring Results Review: All pre-operative results and documents have been reviewed as part of the pre-operative evaluation. Informed Consent: The patient's anesthetic plan and its attendant risks and benefits were discussed with the patient/family/POA. Questions were solicited and answers provided to the satisfaction of the patient/family/POA.
[2021-11-26] MEDS: TRANEXAMIC ACID 1,000MG/ISO100 1,000 MG/100 ML BAG 200 MG IVPB (11:39)
--- NOTE | 2021-11-26 12:04 | WPDHPUPDATE1 ---
History and Physical Update Update Date/Time: 11/26/21 12:04 History and Physical has been reviewed, including an updated exam of the patient. There are NO changes in the patient's condition. Risks, benefits, and alternatives have been discussed and questions answered. Patient agrees to proceed with procedure.
[2021-11-26] MEDS: ceFAZolin 2 GM/D5W 50 ML 2 GM/50 ML BAG IVPB (12:17)
[2021-11-26] MEDS: ceFAZolin SODIUM 1 GM VIAL 3 GM (13:05)
[2021-11-26] MEDS: GENTAMICIN BONE CEMENT REFOBACIN 1 EACH TOPICAL (13:06)
[2021-11-26] MEDS: ceFAZolin SODIUM 1 GM VIAL IV PUSH (15:00)
[2021-11-26] MEDS: TRANEXAMIC ACID 1,000 MG/10 ML AMPUL 1000 MG IV PUSH (15:32)
--- NOTE | 2021-11-26 16:28 | W.PM.PROC2 ---
Procedure Note - Detailed Date of Procedure 11/26/21 Pre-op Diagnosis rt knee oa Post-op Diagnosis Same Procedure Performed Right total knee arthroplasty Surgeon Reinaldo Riddle MD Care Management Associate Monie Jones Description of Procedure Patient was brought to the operating room and general anesthesia was administered the right knee prepped draped usual fashion. He received 2 g of Ancef weight based vancomycin 1 g tranexamic is acid preoperatively. Limb was exsanguinated tourniquet elevated to 250 mmHg. A 7 in longitudinal midline incision was used standard parapatellar arthrotomy was utilized. Range of motion of his knee to was flexion only to 95 and under anesthesia the right knee hyperextended 5-7 degrees. There is pronounced pseudolaxity. Patellar cartilage was intact minimal osteophytes trimmed and I felt the patella was appropriate for non resurfacing. The extensor mechanism was severely scarred with bland scar tissue mediolateral gutters were almost obliterated with scar tissue. The vastus medialis was mobilized by performing a synovectomy and releasing the adhesions to the medial femoral condyle and the same was done laterally. There were huge osteophytes surrounding the distal femur which were debrided. Intramedullary guide xavier was inserted on the femur and 5 degree valgus cutting bushing utilized and we removed 8 mm of bone from the distal femur because of his hyperextension. Next the tibial plateau was cut. We started out with a very conservative cut expecting the flexion gap to get large based on his arthritis severity. We saw that the flexion gap was still too tight even after release of the PCL and therefore an additional 2 mm were removed. This came close to being at the base of the posteromedial tibial defect. Because of his significant pseudolaxity I avoided stripping the superficial collateral ligament or releasing the capsule from the medial tibial plateau but I did remove the prominent anteromedial osteophytes. Flexion gap this time medially was 6 mm laterally 10 mm. Femoral sizing guide was applied. There was complete cartilage loss posteriorly on both medial and lateral femoral condyles and some bone wear on both posteriorly. I applied the sizing guide posterior referencing pinholes were placed at 5? of external rotation which matched Whitesides line. The size 67.5 vanguard cutting block was applied in the anterior cut was appropriate. Relative the anterior cortex in the other cuts were made and on trialing the femoral trial was about a mm wide. I felt it would be acceptable though. I could not slip in the 10 mm CR insert at 90? of every hour was it was too tight and it was snug in extension as well. Therefore an additional 2 mm of bone was removed the tibial plateau and this got us to the floor of the posteromedial defect. Laterally I took care not to release the lateral capsule from the lateral tibial plateau and we left a thin wall bone to avoid disturbing the insertion there as he was looser laterally than medially. He had a severe varus deformity preoperatively with pronounced medial subluxation of femur on tibia indicative of stretching of the lateral soft tissues. The tibia was sized to a size 71 which fit line to line posterolateral and anteromedial at the proper rotation. Is there was a lateral remaining posteromedial tibial osteophyte that could be removed but I elected to wait to see how the balance was before removing this. The we trialed with the 10 mm insert and the knee had appropriate stability at 90? with no play laterally and about a mm of opening medially allowing some translation. Amite flexion was to 140. The knee came out to full extension but with laxity laterally and medially notably more so laterally. Size 12 insert in extension had no medial opening allowed only 1 or 2? of hyperextension and had 3 mm lateral opening. This was far too tight though at 90?. We put the tourniquet down at 90 minutes at this ti
[2021-11-26] MEDS: fentaNYL CITRATE INJ (*CRX) 100 MCG/2 ML VIAL 25 MCG IV PUSH ×2 (17:39→17:43)
--- NOTE | 2021-11-26 18:24 | ADMGEN ---
This patient, Logan Obrien, was admitted to Medical Room 256-. Patient/family oriented to hospital policies and general routines including ID bracelet, bed and alarms, visiting hours, pain management, procedures, bathroom and other care routines, personal items, smoking policy, room service/diet, and visiting hours. Information on how to activate the Rapid Response Team has been discussed. Patient/Family are encouraged to report perceived risks to care and to ask questions if they do not understand what they are told or what they should do.
[2021-11-26] MEDS: SODIUM CHLORIDE 0.9% IV 1,000 ML 125 ML IV CONT (18:45)
[2021-11-26] MEDS: oxyCODONE HCL (*CRX) 5 MG TAB IR PO (21:10)
[2021-11-27] MEDS: ACETAMINOPHEN 500 MG TABLET 1000 MG PO ×2 (00:23→05:03)
[2021-11-27] MEDS: oxyCODONE HCL (*CRX) 5 MG TAB IR PO ×3 (00:23→08:09)
[2021-11-27 00:28] VITALS: BP 115/59; PULSE 60; RESP 14; TEMP 36.4; O2SAT 99
[2021-11-27 06:22] LABS: Basophils Percent Auto 0.2 % (0.2-1.2); Hematocrit 33.9 % (42.0-52.0); Hemoglobin 11.1 g/dL (14.0-18.0); Immature Granulocyte Absolute 0.08 K/mm3 (0.00-0.031); Immature Granulocyte Percent A 0.6 % (0-0.5); Lymphocytes Absolute Auto 0.64 K/mm3 (0.9-3.2); Lymphocytes Percent Auto 4.9 % (18.3-44.2); Mean Corpuscular HGB Conc 32.7 g/dl (32-36); Mean Corpuscular Hemoglobin 28.8 pg (26-34); Mean Corpuscular Volume 87.8 fl (80-100); Mean Platelet Volume 9.3 fl (7.4-10.4); Monocytes Absolute Auto 0.7 K/mm3 (0.1-0.6); Monocytes Percent Auto 5.7 % (2.6-8.5); Neutrophils Absolute Auto 11.6 K/mm3 (1.3-6.7); Neutrophils Percent Auto 88.6 % (45.5-73.1); Platelet Count Result 158 k/mm3 (150-375); Red Blood Count 3.86 M/mm3 (4.6-6.20); Red Cell Distribution Width 14.8 % (11.5-14.5)
--- NOTE | 2021-11-27 06:26 | PM.IMCN ---
Assessment and Plan Assessment and plan (1) Status post total right knee replacement: Code(s): Z96.651 - Presence of right artificial knee joint Status: Acute Assessment and Plan: POD 1 Post op care per ortho Antibiotic: Vancomycin x 2 and cefazolin x3 Pain medications: Celebrex 100mg PO Daily, Oxycodone 5mg PO Q4H LUIS and PRN, Morphine 2mg IV Q1H PRN Anti-emetics: Zofran 4mg IV Bowel health: Miralax and Senna scheduled DVT Eliquis 2.5mg PO Q12H PT/OT (2) Hypertension: Code(s): I10 - Essential (primary) hypertension Status: Acute Assessment and Plan: Current BP 110/61 Continue home spinolacton, HCTZ, ramipril Trend BP Adjust therapy as indicated (3) Hyperlipidemia: Code(s): E78.5 - Hyperlipidemia, unspecified Status: Acute Assessment and Plan: Continue home rosuvastatin HPI Data of Consult Consult date: 11/27/21 Requesting Physician: Reinaldo Riddle MD Primary Care Provider: Toño Madsen MD Consult Narrative Narrative: Logan Obrien is a 71 year old male with a past medical history of HTN and HLD who was is here for an elective total right knee replacement with Dr. Riddle. Review of Systems Review of Systems: All systems reviewed & are unremarkable except as noted in HPI and below PMFSH Past Medical History Medical History HTN (hypertension) Hyperlipidemia Surgical History Surgical History (Updated 11/27/21 @ 06:41 by COLLEEN Bo) H/O arthroscopic knee surgery History of appendectomy History of shoulder surgery Social History Social History (Updated 11/27/21 @ 06:40 by COLLEEN Bo) Smoking packs per day: 0.5 Smoking cigarettes per day: 10.0 Years smoked: 3 Smoking pack-years: 1.50 Smoking status: Former smoker Tobacco type: cigarettes Smoking end date: 06/07/79 Additional smoking assessment comments: DENIES ANY FORM OF TOBACCO USE Alcohol intake: never Substance use: never Substance use type: does not use Living arrangements: alone Gender identity (if verbalized by the patient): Male Sexual Orientation (if Verbalized by the Patient): Straight or Heterosexual Spiritual care concerns: No Agree to blood products: Yes Meds Home Medications and Allergies Home Medications Medication Instructions Recorded Confirmed Type metronidazole 0.75 % topical gel See Rx Instructions .Route .COMPLEX 01/22/21 11/26/21 History ramipril 5 mg capsule 5 mg PO DAILY 01/22/21 11/26/21 History rosuvastatin 5 mg tablet 5 mg PO DAILY 01/22/21 11/26/21 History spironolactone 25 1 tablet PO DAILY 01/22/21 11/26/21 History mg-hydrochlorothiazide 25 mg tablet testosterone 10 mg/0.5 1 pump topical DAILY 01/22/21 11/26/21 History gram/actuation transdermal gel pump (Fortesta) acetaminophen 650 mg 500 mg PO PRN PRN Pain 11/10/21 11/26/21 History tablet,extended release (Tylenol 8 Hour) aspirin 81 mg tablet 81 mg PO DAILY 11/10/21 11/26/21 History multivitamin 1 tablet PO DAILY 11/10/21 11/26/21 History Allergies Allergy/AdvReac Type Severity Reaction Status Date / Time Penicillins Allergy Rash Verified 11/26/21 18:23 Vital Signs Vital Signs - 24 hr 11/26/21 11:12 11/26/21 16:50 11/26/21 17:05 Temperature 99.1 F 97.8 F Pulse Rate 67 60 60 Respiratory Rate 16 8 L 12 Blood Pressure 129/61 109/53 L 113/56 L Pulse Oximetry 99 98 99 Oxygen Delivery Room Air Simple Face Mask Simple Face Mask Oxygen Flow Rate 8 8 11/26/21 17:19 11/26/21 17:35 11/26/21 17:50 Temperature Pulse Rate 61 80 56 L Respiratory Rate 10 L 15 10 L Blood Pressure 113/57 L 100/81 116/58 L Pulse Oximetry 98 95 95 Oxygen Delivery Simple Face Mask Room Air Nasal Cannula Oxygen Flow Rate 8 2 11/26/21 18:05 11/26/21 18:50 11/26/21 18:30 Temperature 97.6 F Pulse Rate 70 60 Res
[2021-11-27 06:32] VITALS: BP 110/61; PULSE 65; RESP 14; TEMP 36.6; O2SAT 94
[2021-11-27 06:35] LABS: Anion Gap 6 mmol/L (8-16); Blood Urea Nitrogen 22 mg/dL (9-20); Calcium 8.2 mg/dL (8.4-10.2); Carbon Dioxide 24 mmol/L (22-30); Chloride 104 mmol/L (98-107); Estimated CRCL calculation 62 ml/min; Estimated Glomerular Filt Rate > 60; Glucose 157 mg/dL (65-110); Potassium 3.9 mmol/L (3.4-5.0); Sodium 134 mmol/L (137-145)
[2021-11-27 08:00] VITALS: BP 109/68; PULSE 62; RESP 15; TEMP 36.9; O2SAT 100
[2021-11-27] MEDS: APIXABAN 2.5 MG TABLET PO (08:01)
[2021-11-27] MEDS: ASPIRIN 81 MG ENTERIC TABLET PO (08:02)
[2021-11-27] MEDS: SENNA/DOCUSATE SODIUM TABLET 2 TAB PO (08:02)
[2021-11-27] MEDS: hydroCHLOROthiazide 25 MG TABLET PO (08:03)
[2021-11-27] MEDS: MULTIVITAMINS THERAPEUTIC TAB (*BKC) 1 TABLET PO (08:04)
[2021-11-27] MEDS: ramipriL 5 MG CAPSULE PO (08:06)
[2021-11-27] MEDS: ROSUVASTATIN 5 MG TABLET PO (08:06)
[2021-11-27] MEDS: SPIRONOLACTONE 25 MG TABLET PO (08:06)
--- NOTE | 2021-11-27 08:33 | PM.PNORT ---
Subjective Subjective Date/Time Seen: 11/27/21 08:33 postop day 1 patient is alert. Afebrile vital signs are stable. Labs are stable. His dressing is dry. Minimal swelling in the knee. He is up walking with physical therapy today and doing well. Pain is overall well controlled. Neurovascularly he is intact. We will plan to have patient work with physical therapy again this afternoon. Once his IV antibiotics have been completed we will plan on discharging him home later today. Objective Data Vital Signs Vital Signs: Vital Signs - 24 hr 11/26/21 11:12 11/26/21 16:50 11/26/21 17:05 Temperature 37.3 C 36.6 C Pulse Rate 67 60 60 Respiratory Rate 16 8 L 12 Blood Pressure 129/61 109/53 L 113/56 L Pulse Oximetry 99 98 99 Oxygen Delivery Room Air Simple Face Mask Simple Face Mask Oxygen Flow Rate 8 8 11/26/21 17:19 11/26/21 17:35 11/26/21 17:50 Temperature Pulse Rate 61 80 56 L Respiratory Rate 10 L 15 10 L Blood Pressure 113/57 L 100/81 116/58 L Pulse Oximetry 98 95 95 Oxygen Delivery Simple Face Mask Room Air Nasal Cannula Oxygen Flow Rate 8 2 11/26/21 18:05 11/26/21 18:50 11/26/21 18:30 Temperature 36.4 C Pulse Rate 70 60 Respiratory Rate 10 L 12 Blood Pressure 119/60 111/56 L Pulse Oximetry 98 94 97 Oxygen Delivery Nasal Cannula Nasal Cannula Oxygen Flow Rate 2 2 11/26/21 18:45 11/26/21 19:17 11/26/21 20:55 Temperature 36.5 C 36.4 C 36.4 C Pulse Rate 60 65 65 Respiratory Rate 12 14 16 Blood Pressure 110/49 L 110/52 L 106/56 L Pulse Oximetry 100 99 99 Oxygen Delivery Oxygen Flow Rate 11/27/21 00:28 11/27/21 06:32 Temperature 36.4 C 36.6 C Pulse Rate 60 65 Respiratory Rate 14 14 Blood Pressure 115/59 L 110/61 Pulse Oximetry 99 94 Oxygen Delivery Oxygen Flow Rate Intake/Output Intake/Output: Intake & Output 11/24/21 11/25/21 11/26/21 11/27/21 23:59 23:59 23:59 23:59 Intake Total 1950 1350 Output Total 500 Balance 1950 850 Meds/Results Medications: Active Medications Generic Name Dose Route Start Last Admin Trade Name Freq PRN Reason Stop Dose Admin Acetaminophen 1,000 mg 11/27/21 00:00 11/27/21 05:03 Acetaminophen 500 Mg Tablet PO 1,000 mg Q6H LUIS Administration Apixaban 2.5 mg 11/27/21 09:00 11/27/21 08:01 Apixaban 2.5 Mg Tablet PO 2.5 mg Q12HR LUIS Administration Aspirin 81 mg 11/27/21 09:00 11/27/21 08:02 Aspirin 81 Mg Enteric Tablet PO 81 mg QAM LUIS Administration Celecoxib 100 mg 11/27/21 08:00 11/27/21 08:00 Celecoxib 100 Mg Capsule PO Not Given DAILY@0800 LUIS Hydrochlorothiazide 25 mg 11/27/21 09:00 11/27/21 08:03 Hydrochlorothiazide 25 Mg Tablet PO 25 mg QAM LUIS Administration Vancomycin HCl 1,000 mg in 250 mls @ 250 mls/hr 11/26/21 22:00 11/26/21 23:18 Vancomycin 1,000 Mg/D5w 250 Ml IVPB 11/27/21 10:59 Infused Q12H LUIS Infusion Cefazolin Sodium 1 gm in 50 mls @ 100 mls/hr 11/26/21 20:00 11/27/21 05:49 Ancef 1 Gm/D5w 50 Ml Pm IVPB 11/27/21 12:29 Infused Q8H LUIS Infusion Morphine Sulfate 2 mg 11/26/21 18:13 Morphine Sulfate (*Crx) 2 Mg/Ml Inj IV PUSH Q1H PRN Pain Rated 7-10 Multivitamins Therapeutic 1 tablet 11/27/21 09:00 11/27/21 08:04 Multivitamins Therapeutic Tab (*Bkc) PO 1 tablet DAILY LUIS Administration Naloxone HCl 0.1 mg 11/26/21 18:13 Naloxone Hcl 0.4 Mg/Ml Vial IV PUSH Q2M PRN Opiate Reversal Ondansetron HCl 4 mg 11/26/21 11:01 Ondansetron Inj 4 Mg/2 Ml Vial IV PUSH ONCE PRN Nausea Oxycodone HCl 5 mg 11/26/21 21:00 11/27/21 08:09 Oxycodone Hcl (*Crx) 5 Mg Tab Ir PO 5 mg Q4HR LUIS Administration Oxycodone HCl 5 mg 11/26/21 18:13 Oxycodone Hcl (*Crx) 5 Mg Tab Ir PO Q4H PRN Pain Rated 4-10 Polyethylene Glycol 17 gm 11/27/21 09:00 11/27/21 08:05 Polyethylene Glycol 3350 17 Gm Powd.Pack PO Not Given QAM LUIS Ramipril 5 mg 11/27/21 09:00 0
--- NOTE | 2021-11-27 08:39 | PM.DS ---
DS: Admitting Diagnosis Discharge Date 11/27 Admitting Diagnosis Right knee DJD DS: Discharge Diagnosis Discharge Diagnosis Plan 71-year-old male who underwent right total knee arthroplasty on 11/26. Underwent the procedure without complications. Postoperatively he has been afebrile vital signs been stable. He has Mepilex dressing over his knee which is dry and intact. Neurovascularly is intact. He is weight-bearing as tolerated. His pain is well controlled with scheduled Tylenol as well as oxycodone 5 mg. He is also on Celebrex 100 mg a day. Patient is doing well postop day 1 with physical therapy. He is walking well. Having no nausea. Patient is on Eliquis for DVT prophylaxis. Will plan to discharge the patient home on 11/27. Patient was advised to keep leg elevated at home prevent swelling but do his exercises on a regular basis. He has outpatient therapy starting next Wednesday. He is also home on Senokot and MiraLax for constipation. Patient was advised any questions or concerns once he goes home he is to call the office otherwise we will see him at his appointment date. DS: Summary Hospital Course Hospital Course: Stable Time Spent with Patient Time attestation: Total time spent providing and/or coordinating discharge services: DS: Data Data Completed and Pending Labs on day of discharge: Labs from last 24 hours 11/27/21 11/27/21 11/26/21 05:58 05:58 10:22 WBC 13.0 H RBC 3.86 L Hgb 11.1 L Hct 33.9 L MCV 87.8 MCH 28.8 MCHC 32.7 RDW 14.8 H Plt Count 158 MPV 9.3 Immature Gran % (Auto) 0.6 H Neut % (Auto) 88.6 H Lymph % (Auto) 4.9 L [place] % (Auto) 5.7 Eos % (Auto) 0.0 Baso % (Auto) 0.2 Lymph # (Auto) 0.64 L [place] # (Auto) 0.7 H Eos # (Auto) 0.0 Baso # (Auto) 0.0 Abs Immat Gran (auto) 0.08 H Absolute Neuts (auto) 11.6 H Absolute Nucleated RBC 0.0 Nucleated RBC % 0.0 Sodium 134 L Potassium 3.9 Chloride 104 Carbon Dioxide 24 Anion Gap 6 L BUN 22 H Creatinine 1.00 Estim Creat Clear Calc 62 Estimated GFR > 60 Glucose 157 H Calcium 8.2 L Blood Type B Positive Antibody Screen Negative Discharge Plan Discharge Patient Disposition: Home, Self-Care Discharge Instructions: REINALDO RIDDLE M.D [facility], [place] [id number] [place] [address] POST-OPERATIVE DISCHARGE INSTRUCTIONS TOTAL KNEE ARTHROPLASTY 1. When resting, lie on back with leg elevated above heart to minimize swelling. It is best to elevate while patient is either in bed or on a couch. Swelling could indicate a blood clot and if this occurs call the office (or go to the ER) to have a venous ultrasound. 2. Do exercise 5 times a day. 3. Do not sit with leg down except for meals. Limit sitting in chair with leg hanging down to 30 minutes at a time 3 times a day. 4. Wound Care: Nursing will give additional dressings at discharge. Patient to change dressing at home 1 week from surgery, then maintain until seen in office. 5. May shower with dressing in place. Patient Instructions: Joint Replacement Surgery (DC), Knee Replacement (DC) Follow-up/Referrals: Reinaldo Riddle MD [Physician] - Keep Reg. Scheduled Appt. Discharge Medications: New acetaminophen 500 mg Tablet 1,000 mg PO Q6H Qty: 90 0RF Eliquis 2.5 mg Tablet 2.5 mg PO Q12HR Qty: 27 0RF polyethylene glycol 3350 [Miralax] 17 gram Powder In Packet 17 g PO QAM Qty: 30 0RF sennosides-docusate sodium [Senokot-S] 8.6-50 mg Tablet 2 tab PO BID Qty: 60 0RF celecoxib [Celebrex] 100 mg Capsule 100 mg PO DAILY@0800 Qty: 60 0RF oxycodone 5 mg Tablet 5 mg PO Q4HR Qty: 40 0RF Continued spironolacton-hydrochlorothiaz 25-25 mg tablet 1 tablet PO DAILY metronidazole 0.75 % gel See Rx Instructions .ROUTE .COMPLEX Rx Instructions: . ramipr
[2021-11-27] MEDS: ONDANSETRON INJ 4 MG/2 ML VIAL IV PUSH (10:50)
[2021-11-27 11:58] VITALS: BP 110/66; PULSE 62; RESP 16; TEMP 36.9; O2SAT 100
== END 2021-11-27 15:16 | disposition home or self-care (01) ==
LOC: ANHSURGERY 09:40 → ANH2MED 11-27 05:31
PROVIDERS: PCP Internal Medicine; Visit Provider Orthopaedic Surgery
PROC: (CPT 27447; principal; 2021-11-26 12:00)
DX: M17.11 Unilateral primary osteoarthritis, right knee (principal); M21.161 Varus deformity, not elsewhere classified, right knee; M25.761 Osteophyte, right knee; Z79.01 Long term (current) use of anticoagulants; Z79.82 Long term (current) use of aspirin; I10 Essential (primary) hypertension; E78.5 Hyperlipidemia, unspecified; Z87.891 Personal history of nicotine dependence
CPT/HCPCS: 27447; 36415; 73560; 80048; 85025; 86850; 86900; 86901; 97110; 97161; 97165; 97530; 97535; A9270; C1713; C1776; J0171; J0330; J0690; J1100; J1885; J2250; J2270; J2405; J2704; J2795; J3010; J3370; J7030; J7120

== ENCOUNTER 2023-02-03 10:54 | Outpatient (CLI) | payer MEDICARE, OTHER, SELFPAY ==
--- NOTE | 2023-02-03 11:57 | ECG_ITS ---
Measurements Intervals [place] Rate: 62 P: 55 [place]: 230 QRS: -11 QRSD: 163 T: 44 QT: 419 QTc: 428 Interpretive Statements SINUS RHYTHM WITH FIRST DEGREE AV BLOCK LEFT BUNDLE BRANCH BLOCK [120+ ms QRS DURATION, 80+ ms Q/S IN V1/V2, 85+ ms R IN I/aVL/V5/V6] ABNORMAL ECG NO PREVIOUS ECG AVAILABLE FOR COMPARISON Electronically Signed On 02-03-2023 12:14:17 CDT by Yohan Rios M.D.
[2023-02-03 12:24] LABS: Basophils Absolute Auto 0.1 K/mm3 (0.0-0.1); Basophils Percent Auto 0.9 % (0.2-1.2); Eosinophils Absolute Auto 0.2 K/mm3 (0-0.3); Eosinophils Percent Auto 2.7 % (0-4.4); Hemoglobin 12.6 g/dL (14.0-18.0); Immature Granulocyte Absolute 0.03 K/mm3 (0.00-0.031); Immature Granulocyte Percent A 0.4 % (0-0.5); Lymphocytes Absolute Auto 1.15 K/mm3 (0.9-3.2); Lymphocytes Percent Auto 15.3 % (18.3-44.2); Mean Corpuscular HGB Conc 32.3 g/dl (32-36); Mean Corpuscular Hemoglobin 28.6 pg (26-34); Mean Corpuscular Volume 88.6 fl (80-100); Mean Platelet Volume 9.6 fl (7.4-10.4); Monocytes Absolute Auto 0.7 K/mm3 (0.1-0.6); Monocytes Percent Auto 8.7 % (2.6-8.5); Neutrophils Absolute Auto 5.4 K/mm3 (1.3-6.7); Platelet Count Result 172 k/mm3 (150-375); Red Cell Distribution Width 14.3 % (11.5-14.5); White Blood Count 7.5 K/mm3 (4.5-10.0)
[2023-02-03 12:40] LABS: Albumin Level 4.1 g/dL (3.5-5.1); Anion Gap 9 mmol/L (8-16); Blood Urea Nitrogen 22 mg/dL (9-20); Calcium 9.8 mg/dL (8.4-10.2); Carbon Dioxide 27 mmol/L (22-30); Chloride 103 mmol/L (98-107); Estimated Glomerular Filt Rate > 60; Glucose 123 mg/dL (65-110); Sodium 139 mmol/L (137-145)
[2023-02-03 12:46] LABS: Urine Cotinine NEGATIVE
[2023-02-03 13:36] LABS: Hemoglobin A1C 5.9 % (<5.7)
== END 2023-02-03 10:55 | disposition home or self-care (01) ==
LOC: ANHSURGERY 11:02
PROVIDERS: PCP Internal Medicine; Visit Provider Orthopaedic Surgery
DX: M17.12 Unilateral primary osteoarthritis, left knee (principal); Z01.818 Encounter for other preprocedural examination
CPT/HCPCS: 80048; 80307; 82040; 83036; 85025; 87081; 93005

== ENCOUNTER 2023-02-17 00:27 | Day surgery (SDC) | payer MEDICARE, OTHER, SELFPAY ==
[2023-02-03 11:24] VITALS: BP 124/64; PULSE 62; RESP 16; TEMP 36.6; O2SAT 98; BMI 27.1
--- NOTE | 2023-02-03 11:36 | PC.NURSE ---
Report to the Outpatient Waiting Room, entrance under the green pavilion located off [facility], at time _9:30AM on date __02/17/23 . Planned Procedure Time: __11:30AM . Time changes happen often and if your time is changed the preop area will call you the afternoon before. - You and your visitor will be asked to self-screen and do not enter if you have any COVID symptoms. - A mask is optional within the hospital at this time. Patients may have clear liquids (water, carbonated beverages, clear teas, apple juice) until 3 hours prior to surgery with a maximum of 20 ounces. - No food from midnight until time of surgery Take the following medications with a SIP of water the morning of surgery: __NONE DO NOT STOP ANY OF YOUR OTHER PRESCRIPTION MEDICATIONS PRIOR TO SURGERY ?EXCEPT THE FOLLOWING Medications to discontinue per physician ___HOLD ALL VITAMINS/SUPPLEMENTS 7 DAYS PRE-OP PER DR CABRAL Date to take last dose 02/10/23 Please no make-up, nail setswana, hairspray, perfume, deodorant, or body powder the day of surgery. No jewelry (including any body piercings) or valuables the day of surgery, leave them at home. Please take a shower or bath the night before, or the morning of, surgery with an antibacterial soap. Wear comfortable, loose fitting clothing. Children are encouraged to wear pajamas. - Jewelry must be removed prior to entering the operating room. Rings and piercings that are not removed may be cut off. - The hospital will not accept responsibility for valuables. - Please leave all valuables, including medications, at home the day of surgery. If you are going home after surgery, a licensed yard truck driver must drive you home. - NO public transportation without another adult if you receive anesthesia. - We recommend that an adult stay with you for 24 hours following discharge. - We also recommend that you do not drive, make important decision, drink alcoholic beverages, or take any drugs that were not prescribed by your health care provider for at least 24 hours after your discharge time. Follow any additional instructions given to you from your surgeon. HIBICLENS SHOWER If you or anyone in your household have experienced Covid symptoms in the past week, please notify your surgeon or the nurse liaison at the phone number below for possible testing. Telephone instructions given to ___PATIENT and asked if any additional questions and then verbalized understanding. Patient advised to call surgeon office or pre surgery nurse liaison [phone] if any additional questions.
--- NOTE | 2023-02-15 11:59 | PM.IMHP ---
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 He underwent right total knee arthroplasty in November of 2021. He did very well with his recovery and is happy with his results. He has severe medial compartment osteoarthritis in the left knee. He continues be very symptomatic for him and he feels this point very proceed with surgery rather continuing nonsurgical treatment. Review of Systems Review of Systems: All systems reviewed & are unremarkable except as noted in HPI and below PMFSH Past Medical History Medical History HTN (hypertension) Hyperlipidemia Surgical History Surgical History (Updated 11/27/21 @ 08:37 by GINNY Keane) H/O arthroscopic knee surgery History of appendectomy History of shoulder surgery Social History Social History (Updated 11/27/21 @ 06:40 by COLLEEN Cortes) Smoking packs per day: 0.1 Smoking cigarettes per day: 2.0 Years smoked: 4 Smoking pack-years: 0.40 Smoking status: Former smoker Tobacco type: cigarettes Smoking end date: 12/05/96 Additional smoking assessment comments: DENIES ANY FORM OF TOBACCO USE Alcohol intake: former Alcohol use details: FORMER DRINKER, QUIT-1995 Substance use: never Substance use type: does not use Living arrangements: alone Gender identity (if verbalized by the patient): Male Sexual Orientation (if Verbalized by the Patient): Straight or Heterosexual Spiritual care concerns: No Agree to blood products: Yes Meds Home Medications and Allergies Home Medications Medication Instructions Recorded Confirmed Type ramipril 5 mg capsule 5 mg PO QAM 01/22/21 02/03/23 History spironolactone 25 1 tablet PO QAM 01/22/21 02/03/23 History mg-hydrochlorothiazide 25 mg tablet testosterone 10 mg/0.5 1 pump topical DAILY 01/22/21 02/03/23 History gram/actuation transdermal gel pump (Fortesta) aspirin 81 mg tablet 81 mg PO DAILY 11/10/21 02/03/23 History multivitamin 1 tablet PO DAILY 11/10/21 02/03/23 History acetaminophen 500 mg tablet 1,000 mg PO Q6H PRN Pain 02/03/23 02/03/23 History rosuvastatin 20 mg tablet 20 mg PO DAILY 02/03/23 02/03/23 History sildenafil (pulm.hypertension) 20 20 mg PO DAILY 02/03/23 02/03/23 History mg tablet (Revatio) triamcinolone acetonide 0.1 % 1 applic topical BID PRN Rash 02/03/23 02/03/23 History topical cream Allergies Allergy/AdvReac Type Severity Reaction Status Date / Time Penicillins Allergy Rash Verified 02/03/23 11:12 Exam Narrative: 72-year-old male alert pleasant. He walks without obvious limp. He is 5 ft 7 and 166 lb his BMI is 26. Left knee range of motion is from 0-140 degrees. Normal stability. 2+ dorsalis pedis and posterior artery pulse palpable. He has normal sensation and no edema in lower extremities. His hip has full range motion without discomfort. Mild effusion in the left knee. Resp: Auscultation: clear to auscultation bilaterally Cardio: Rate: regular rate Rhythm: regular rhythm Assessment and Plan Assessment and plan (1) Left knee DJD: Code(s): M17.12 - Unilateral primary osteoarthritis, left knee Status: Acute Plan 72-year-old male who has severe medial compartment osteoarthritis in the left knee that continues to be symptomatic for him. Again he is very happy with his right knee replacement and feels he is ready proceed with the left. Surgical procedure as well as risks and complications were discussed in detail questions were answered and we will proceed. He will see his primary care doctor for pre-surgical clearance. He will avoid any aspirin ibuprofen products 1 week prior to surgery. Patient did see his geotechnical operating engineer 2 months ago. Patient's nasal swab is negative. Hemoglobin 12.6 and plat
[2023-02-17] VITALS (14 sets, daily range): BP systolic 98–154; BP diastolic 42–71; PULSE 60–96; RESP 10–20; TEMP 36.1–36.8; O2SAT 95–100
--- NOTE | ~2023-02-17 | XR_ITS ---
EXAMINATION: [id number] DATE: 02/17/2023 14:52 INDICATION: Total left knee arthroplasty. Postop. TECHNIQUE: 2 views of left knee were obtained. COMPARISON: None. FINDINGS: There is a total left knee arthroplasty without patellar resurfacing in near-anatomic align ment. There are osteophytes of the patella. No fracture. There is gas in the knee joint and soft tiss ues, consistent with recent surgery. IMPRESSION: 1. Total left knee arthroplasty in near-anatomic alignment. Reviewed, dictated and finalized at location A.
[2023-02-17] MEDS: ACETAMINOPHEN 500 MG TABLET 1000 MG PO ×2 (09:49→17:29)
[2023-02-17] MEDS: VANCOMYCIN 1,250 MG/NS 250 ML BAG 166.67 MG IVPB (09:50)
[2023-02-17] MEDS: LACTATED RINGERS 1,000 ML 30 ML IV CONT ×2 (10:20→14:49)
--- NOTE | 2023-02-17 10:55 | WPDHPUPDATE1 ---
History and Physical Update Update Date/Time: 02/17/23 10:55 History and Physical has been reviewed, including an updated exam of the patient. There are NO changes in the patient's condition. Risks, benefits, and alternatives have been discussed and questions answered. Patient agrees to proceed with procedure.
--- NOTE | 2023-02-17 11:07 | WPDANESEPPF ---
Anes - Initial Pre Proc Eval Procedure: Operation Date: 02/17/23 11:30 Proposed Procedures p Left Total Knee Arthroplasty - Reinaldo Riddle MD Date/Time: 02/17/23 11:07 Surgeon: Reinaldo Riddle MD Pre Op Diagnosis: left knee OA Patient Data Age: 72 Gender: M Height: 1.71 m Weight: 79.6 kg Last Vital Signs Temp 36.6 C 02/03/23 11:24 Pulse 62 02/03/23 11:24 Resp 16 02/03/23 11:24 BP 124/64 02/03/23 11:24 Pulse Ox 98 02/03/23 11:24 O2 Del Method Room Air 02/03/23 11:24 Allergies Allergy/AdvReac Type Severity Reaction Status Date / Time Penicillins Allergy Rash Verified 02/17/23 09:38 Home Medications Medication Instructions Recorded Confirmed Type ramipril 5 mg capsule 5 mg PO QAM 01/22/21 02/17/23 History spironolactone 25 1 tablet PO QAM 01/22/21 02/17/23 History mg-hydrochlorothiazide 25 mg tablet aspirin 81 mg tablet 81 mg PO DAILY 11/10/21 02/17/23 History multivitamin 1 tablet PO DAILY 11/10/21 02/17/23 History acetaminophen 500 mg tablet 1,000 mg PO Q6H PRN Pain 02/03/23 02/17/23 History rosuvastatin 20 mg tablet 20 mg PO DAILY 02/03/23 02/17/23 History sildenafil (pulm.hypertension) 20 20 mg PO DAILY 02/03/23 02/03/23 History mg tablet (Revatio) triamcinolone acetonide 0.1 % 1 applic topical BID PRN Rash 02/03/23 02/03/23 History topical cream Patient hx anesthesia problems: none Family hx anesthesia problems: none Results Review: All pre-operative results and documents have been reviewed as part of the pre-operative evaluation. [facility] Past Medical History Medical History HTN (hypertension) Hyperlipidemia Surgical History Surgical History H/O arthroscopic knee surgery History of appendectomy History of shoulder surgery Social History Social History Smoking packs per day: 0.1 Smoking cigarettes per day: 2.0 Years smoked: 4 Smoking pack-years: 0.40 Smoking status: Former smoker Tobacco type: cigarettes Smoking end date: 12/05/96 Additional smoking assessment comments: DENIES ANY FORM OF TOBACCO USE Alcohol intake: former Alcohol use details: FORMER DRINKER, -1995 Substance use: never Substance use type: does not use Living arrangements: alone Gender identity (if verbalized by the patient): Male Sexual Orientation (if Verbalized by the Patient): Straight or Heterosexual Spiritual care concerns: No Agree to blood products: Yes Anes - Eval Final PreProcedure Day of Procedure 02/17/23 11:07 Patient weight: normal Heart: regular rate and rhythm Lungs: clear to auscultation Airway: Mallampati scale class II Neurological: alert and oriented Last oral intake: >/= 8 hours ASA classification: III Emergent: no Anesthetic plan: proceed Anesthesia type and monitoring: general ETT and standard monitoring Results Review: All pre-operative results and documents have been reviewed as part of the pre-operative evaluation. Informed Consent: The patient's anesthetic plan and its attendant risks and benefits were discussed with the patient/family/POA. Questions were solicited and answers provided to the satisfaction of the patient/family/POA.
[2023-02-17] MEDS: TRANEXAMIC ACID 1,000MG/ISO100 1,000 MG/100 ML BAG 200 MG IVPB (11:14)
[2023-02-17] MEDS: ceFAZolin 2 GM/D5W 50 ML 2 GM/50 ML BAG IVPB (11:41)
[2023-02-17] MEDS: ceFAZolin SODIUM 1 GM VIAL 3 GM (12:57)
--- NOTE | 2023-02-17 14:57 | W.PM.PROC2 ---
Procedure Note - Detailed Date of Procedure 02/17/23 Pre-op Diagnosis left knee OA Post-op Diagnosis Same Procedure Performed Left total knee arthroplasty Surgeon Reinaldo Riddle MD Showroom Manager [facility] Anesthesia General Description of Procedure Patient was brought to the operating room and general anesthesia was administered. He received 2 g Ancef weight based vancomycin 1 g of tranexamic acid preoperatively. The left knee was prepped draped usual fashion. Under anesthesia he had about 2? of hyperextension. He had prominent medial pseudolaxity to valgus stress. The limb was exsanguinated and tourniquet elevated to 250 mmHg. A 7 in longitudinal midline incision was used and a standard parapatellar arthrotomy was utilized. His skin in subcutaneous layer was too thin to safely use a vastus medialis approach I felt. Infrapatellar and suprapatellar fat pads were excised a quadriceps synovectomy carried out. The patellar cartilage was in excellent condition. A minimal lateral facetectomy was performed. A guide xavier was inserted down the femoral canal after aspiration of canal contents using the 5 degree valgus cutting bushing 8 mm of bone removed the distal femur. Next the tibial plateau was cut perpendicular to the axis of the tibia. This was a skim cut removing about a mm from the low point of the medial tibial plateau. Meniscal remnants were excised the PCL was recessed. Flexion gap measured 9 mm medially 12 mm laterally. Femoral sizing guide was applied at 4? of external rotation. Posterior referencing pinholes were placed and the 65 cutting block applied. A to P and chamfer cuts were made. The 65 was a little bit large both overhanging a mm medially laterally and 1 or 2 mm off the anterior cortex the proximal edge. The we trialed with the 10 CR insert and there was ample play at 90?. The knee lacked couple of degrees of extension was tight medially spring open little bit laterally. The tibia was sized to a 71 which fit line to line posterolateral to anteromedial at proper rotation. This was punched. Bone quality was excellent. We trialed with the 10 insert. Stability was pre appropriate with the arthrotomy open but closing the arthrotomy tight in the medial side so much the and eliminated any anterior-posterior drawer play. In extension the knee was much tighter medially laterally still. Posterior and medial tibial osteophyte was removed and we were still tighter both in flexion and extension medially. I elected to shave the additional mm of bone from the medial tibial plateau to place the cut in 1 degree of varus and this was carried out. The femur was downsized to a 62 which had no mediolateral overhang and fit on the anterior cortex very nicely. With Trial in place additional posterior condylar bone was removed proximal posterior flanges. We did not release posterior capsule because of his hyperextension preoperatively. With this done we trialed and the knee just came to full extension but was very tight medially and. There was 3 mm of play laterally. At 90? of flexion there was appropriate stability and with the arthrotomy towel clips closed the was gravity flexion to 140?. I assessed the distal femoral cut with the 5 degree wing and intramedullary xavier and I felt we were at about 6? of valgus instead of 5 and therefore I removed an additional mm of bone from the distal medial femoral condyle and transition this to the lateral side so we had a flat surface chamfer cuts revisited and this time with the 10 insert the knee came to full extension with 1 mm play medially pre laterally appropriate stability in all positions. Satisfied with this the lug holes were drilled and step drill was used to make multiple perforations both the distal femur and tibial plateau. Bone quality seemed excellent. The bony surfaces were thoroughly irrigated dried. Using 2 batches of methylmethacrylate, 1 with a gentamicin powder, the cement was a medial appl
[2023-02-17] MEDS: fentaNYL CITRATE INJ (*CRX) 100 MCG/2 ML VIAL 25 MCG IV PUSH ×6 (15:20→16:05)
--- NOTE | 2023-02-17 16:24 | ADMGEN ---
This patient, Logan Obrien, was admitted to -. Patient/family oriented to hospital policies and general routines including ID bracelet, bed and alarms, visiting hours, pain management, procedures, bathroom and other care routines, personal items, smoking policy, room service/diet, and visiting hours. Information on how to activate the Rapid Response Team has been discussed. Patient/Family are encouraged to report perceived risks to care and to ask questions if they do not understand what they are told or what they should do.
--- NOTE | 2023-02-17 17:07 | PM.OP ---
Procedure Note - Brief Procedure Note - Brief Date of procedure: 02/17/23 left knee OA Procedure performed: left total knee Surgeon: GINNY Keane Description of procedure: 72 y/o who underwent left total knee arthroplasty. I was involved in the procedure including positioning patient on the OR table and first assisting during surgery. Total time spent was 3 hours
[2023-02-17] MEDS: oxyCODONE HCL (*CRX) 5 MG TAB IR 10 MG PO ×2 (17:29→20:35)
[2023-02-17] MEDS: KETOROLAC 15 MG/ML VIAL (*BKC) IV PUSH (17:29)
[2023-02-17] MEDS: SENNA/DOCUSATE SODIUM TABLET 2 TAB PO (17:29)
--- NOTE | 2023-02-17 18:32 | WPDCN ---
Assessment and Plan Assessment and plan (1) Status post total left knee replacement: Code(s): Z96.652 - Presence of left artificial knee joint Status: Acute Assessment and Plan: Patient s/p L knee total arthroplasty done today, 02/17/23, by Janessa. No complications during surgery. ambulate with assistance, up to chair cardiac montioring Q4H IS use neurovasc checks - see order for intervals SCDs ordered wound care resume diet: regular repeat daily labs in AM - CBC, CMP pain management: TYL bowel regimen: docusate/senna, polyethylene glycol pain management: Tyl Q6H, morphine 2 mg, oxycodone 10 mg and narcan PRN zofran PRN for nausea prophylactic atb - doxycycline 100 mg Q12H start apixaban Plan Chronic Conditions -HTN:continue home medications - ASA 81, sildenafil, ramipril. HCTZ/spironolactone held. BP currently 117/42, resume if pressure improves. continue to monitor. -HLD:continue home medication - rosuvastatin -Supplements: continue home multivitamin and triamcinolone cream Diet:regular DVT Prophylaxis: SCDs, apixaban initiated Code Status: full code HPI Data of Consult Date/Time: 02/17/23 18:32 Requesting Physician: Reinaldo Riddle MD Primary Care Provider: Toño Madsen MD Consult Narrative Reason for consult: Medical Managment Narrative: Logan Obrien is a 72 year old male with PMH of LBBB, HTN, and HLD presented here for L total knee arthoplasty. Presented here for L total knee arthroplasty due to pain for the last year and subsequent reduction in ADLs. No assistive device used prior to surgery. Tyl PRN at home did not resolve pain. Previously had R knee arthroplasty in 2021 w/o complications and gained back a moderate amount of mobility. Patient reports constant posterior knee pain post-op. No changes in sensation. Denies CP, SOB, MARMOLEJO, nausea, or vomiting. Currently A/Ox4. Review of Systems Review of Systems: All systems reviewed & are unremarkable except as noted in HPI and below PMFSH Past Medical History Medical History (Updated 02/17/23 @ 18:39 by Ute Arredondo APRN) HTN (hypertension) Hyperlipidemia LBBB (left bundle branch block) Surgical History Surgical History (Updated 02/17/23 @ 18:39 by Ute Arredondo APRN) History of ankle surgery L Side History of appendectomy History of hernia surgery History of shoulder surgery Rotator Cuff - L History of total knee arthroplasty R - 2021 Social History Social History (Updated 02/17/23 @ 18:40 by Ute Arredondo, TAYO) Social History: Currently lives alone in home. Surrogate decision maker - Jeremie Obrien (brother). Smoking packs per day: 0.1 Smoking cigarettes per day: 2.0 Years smoked: 4 Smoking pack-years: 0.40 Smoking status: Former smoker Tobacco type: cigarettes Smoking end date: 12/05/96 Additional smoking assessment comments: DENIES ANY FORM OF TOBACCO USE Alcohol intake: former Alcohol use details: FORMER DRINKER, QUIT-1995 Substance use: never Substance use type: does not use Living arrangements: alone Gender identity (if verbalized by the patient): Male Sexual Orientation (if Verbalized by the Patient): Straight or Heterosexual Spiritual care concerns: No Agree to blood products: Yes Meds Home Medications and Allergies Home Medications Medication Instructions Recorded Confirmed Type ramipril 5 mg capsule 5 mg PO QAM 01/22/21 02/17/23 History spironolactone 25 1 tablet PO QAM 01/22/21 02/17/23 History mg-hydrochlorothiazide 25 mg tablet aspirin 81 mg tablet 81 mg PO DAILY 11/10/21 02/17/23 History multivitamin 1 tablet PO DAILY 11/10/21 02/17/23 History acetaminophen 500 mg tablet 1,000 mg PO Q6H PRN Pain 02/03/23 02/17/23 History rosuvastatin 20 mg tablet 20 mg PO DAILY 02/03/23 02/17/23 History sildenafil (pulm.hypertension) 20 20 mg PO DAILY 02/03/23 02/03/23 History mg tablet (Revatio) triamcinolone acet
[2023-02-17] MEDS: ceFAZolin 1 GM/NS 50 ML 1 GM/50 ML BAG IVPB (20:36)
[2023-02-17] MEDS: VANCOMYCIN 1,000 MG/NS 250 ML 1,000 MG/250 ML BAG 250 MG IVPB (21:19)
[2023-02-18] VITALS: PULSE 61
[2023-02-18 00:08] VITALS: BP 119/53; PULSE 70; RESP 16; TEMP 35.8; O2SAT 94
[2023-02-18 04:00] VITALS: PULSE 77
[2023-02-18] MEDS: ceFAZolin 1 GM/NS 50 ML 1 GM/50 ML BAG IVPB ×2 (04:34→12:39)
[2023-02-18 06:03] VITALS: BP 121/58; PULSE 68; RESP 16; TEMP 35.8; O2SAT 99
[2023-02-18 06:54] LABS: Basophils Percent Auto 0.2 % (0.2-1.2); Hematocrit 37.6 % (42.0-52.0); Hemoglobin 12.1 g/dL (14.0-18.0); Immature Granulocyte Percent A 0.5 % (0-0.5); Lymphocytes Percent Auto 6.6 % (18.3-44.2); Mean Corpuscular HGB Conc 32.2 g/dl (32-36); Mean Corpuscular Volume 90.2 fl (80-100); Mean Platelet Volume 9.3 fl (7.4-10.4); Neutrophils Percent Auto 86.7 % (45.5-73.1); Platelet Count Result 162 k/mm3 (150-375); Red Blood Count 4.17 M/mm3 (4.6-6.20); Red Cell Distribution Width 14.1 % (11.5-14.5); White Blood Count 12.1 K/mm3 (4.5-10.0)
[2023-02-18 06:55] LABS: Immature Granulocyte Absolute 0.06 K/mm3 (0.00-0.031); Monocytes Absolute Auto 0.7 K/mm3 (0.1-0.6); Neutrophils Absolute Auto 10.5 K/mm3 (1.3-6.7)
[2023-02-18 07:06] LABS: Anion Gap 5 mmol/L (8-16); Blood Urea Nitrogen 25 mg/dL (9-20); Calcium 8.8 mg/dL (8.4-10.2); Carbon Dioxide 26 mmol/L (22-30); Chloride 102 mmol/L (98-107); Estimated CRCL calculation 47 ml/min; Estimated Glomerular Filt Rate 60; Glucose 155 mg/dL (65-110); Potassium 4.4 mmol/L (3.4-5.0); Sodium 133 mmol/L (137-145)
--- NOTE | 2023-02-18 07:45 | PM.PNORT ---
Subjective Subjective Date/Time Seen: 02/18/23 07:45 Interval history: Postop day 1 patient is alert. He is afebrile vital signs stable. Dressing is dry and intact. Neurovascularly is intact. He is able do straight leg raise in the bed. He is able flex the knee to approximately 115? in the bed comfortably. Pain is well controlled. Morning labs are noted. Plan to have the patient work with therapy this morning and again this afternoon once IV antibiotics have been completed to be discharged home this afternoon Objective Data Vital Signs Vital Signs: Vital Signs - 24 hr 02/17/23 09:34 02/17/23 14:54 02/17/23 15:10 Temperature 36.8 C 36.7 C Pulse Rate 65 66 80 Respiratory Rate 16 11 L 14 Blood Pressure 154/69 H 98/51 L 130/71 Pulse Oximetry 97 99 99 Oxygen Delivery Room Air Simple Face Mask Simple Face Mask Oxygen Flow Rate 8 8 02/17/23 15:25 02/17/23 15:40 02/17/23 15:55 Temperature Pulse Rate 76 96 78 Respiratory Rate 14 20 12 Blood Pressure 116/68 104/61 123/59 L Pulse Oximetry 95 97 100 Oxygen Delivery Room Air Room Air Room Air Oxygen Flow Rate 02/17/23 16:10 02/17/23 16:50 02/17/23 17:05 Temperature 36.2 C L 36.2 C L Pulse Rate 65 71 65 Respiratory Rate 10 L 18 18 Blood Pressure 119/68 123/60 123/55 L Pulse Oximetry 96 96 100 Oxygen Delivery Room Air Oxygen Flow Rate 02/17/23 17:35 02/17/23 18:35 02/17/23 16:35 Temperature 36.1 C L 36.3 C L Pulse Rate 66 71 60 Respiratory Rate 18 18 Blood Pressure 126/62 117/42 L Pulse Oximetry 98 98 Oxygen Delivery Oxygen Flow Rate 02/17/23 22:03 02/17/23 20:35 02/17/23 20:35 Temperature 36.2 C L Pulse Rate 65 65 Respiratory Rate 18 Blood Pressure 114/57 L Pulse Oximetry 98 Oxygen Delivery Room Air Oxygen Flow Rate 02/18/23 00:00 02/18/23 00:08 02/18/23 04:00 Temperature 35.8 C L Pulse Rate 61 70 77 Respiratory Rate 16 Blood Pressure 119/53 L Pulse Oximetry 94 Oxygen Delivery Oxygen Flow Rate 02/18/23 06:03 Temperature 35.8 C L Pulse Rate 68 Respiratory Rate 16 Blood Pressure 121/58 L Pulse Oximetry 99 Oxygen Delivery Oxygen Flow Rate Intake/Output Intake/Output: Intake & Output 02/15/23 02/16/23 02/17/23 02/18/23 23:59 23:59 23:59 23:59 Intake Total 1800 150 Output Total 2 Balance 1800 148 Meds/Results Medications: Active Medications Generic Name Dose Route Start Last Admin Trade Name Freq PRN Reason Stop Dose Admin Acetaminophen 1,000 mg 02/17/23 17:00 02/18/23 05:11 Acetaminophen 500 Mg Tablet PO Not Given Q6H [facility] Apixaban 2.5 mg 02/18/23 09:00 Apixaban 2.5 Mg Tablet PO Q12HR [facility] Aspirin 81 mg 02/18/23 09:00 Aspirin 81 Mg Chewable Tablet PO DAILY [facility] Doxycycline Hyclate 100 mg 02/18/23 21:00 Doxycycline Hyclate 100 Mg Tablet PO 03/02/23 20:59 Q12HR [facility] Cefazolin Sodium 1 gm in 50 mls @ 100 mls/hr 02/17/23 20:00 02/18/23 04:34 Ancef 1 Gm/Ns 50 Ml IVPB 02/18/23 12:29 100 mls/hr Q8H [facility] Administration Vancomycin HCl 1,000 mg in 250 mls @ 250 mls/hr 02/17/23 22:00 02/17/23 21:19 Vancomycin 1,000 Mg/Ns 250 Ml IVPB 02/18/23 10:59 250 mls/hr Q12H [facility] Administration Morphine Sulfate 2 mg 02/17/23 16:18 Morphine Sulfate (*Crx) 2 Mg/Ml Inj IV PUSH Q1H PRN Pain Rated 7-10 Multivitamins Therapeutic 1 tablet 02/18/23 09:00 Multivitamins Therapeutic Tab (*Bkc) PO DAILY [facility] Naloxone HCl 0.1 mg 02/17/23 16:18 Naloxone Hcl 0.4 Mg/Ml Vial IV PUSH Q2M PRN Opiate Reversal Oxycodone HCl 10 mg 02/17/23 17:00 02/18/23 05:12 Oxycodone Hcl (*Crx) 5 Mg Tab Ir PO Not Given Q4H [facility] Polyethylene Glycol 17 gm 02/18/23 09:00 Polyethylene Glycol 3350 17 Gm Powd.Pack PO QAM [facility] Ramipril 5 mg 02/18/23 09:00 Ramipril 5 Mg Capsule PO QAM [facility] Rosuvastatin Calcium 20 mg 02/18/23 09:00 Rosuvastatin 10 Mg Tablet PO
--- NOTE | 2023-02-18 07:49 | PM.DS ---
DS: Admitting Diagnosis Discharge Date 02/18 Admitting Diagnosis Left knee DJD DS: Discharge Diagnosis Discharge Diagnosis (1) Status post total left knee replacement: Code(s): Z96.652 - Presence of left artificial knee joint Status: Acute DS: Summary Hospital Course Hospital Course: 70-year-old male underwent left total knee arthroplasty on 02/17. Underwent the procedure without complications. Postoperatively he has been afebrile vital signs stable. Neurovascular is intact. His dressing is dry and intact. He is weight-bearing as tolerated. He was up overnight to the restroom multiple times and comfortable. He is on scheduled Tylenol as well as oxycodone 10 mg q.4 hours for pain control. He is on Eliquis for DVT prophylaxis. Patient will be discharged home on 02/18. He was advised to keep leg elevated home to prevent swelling. He has outpatient therapy starting next Wednesday. He will also go home on Senokot and MiraLax for constipation. He is also going to be going home on a 10 day course of doxycycline. Patient was advised any questions or concerns she is to call the office otherwise we will see him at his appointments Time Spent with Patient Time attestation: Total time spent providing and/or coordinating discharge services: DS: Data Data Completed and Pending Labs on day of discharge: Labs from last 24 hours 02/18/23 02/17/23 06:40 09:50 WBC 12.1 H RBC 4.17 L Hgb 12.1 L Hct 37.6 L MCV 90.2 MCH 29.0 MCHC 32.2 RDW 14.1 Plt Count 162 MPV 9.3 Immature Gran % (Auto) 0.5 Neut % (Auto) 86.7 H Lymph % (Auto) 6.6 L [place] % (Auto) 6.0 Eos % (Auto) 0.0 Baso % (Auto) 0.2 Lymph # (Auto) 0.80 L [place] # (Auto) 0.7 H Eos # (Auto) 0.0 Baso # (Auto) 0.0 Abs Immat Gran (auto) 0.06 H Absolute Neuts (auto) 10.5 H Absolute Nucleated RBC 0.0 Nucleated RBC % 0.0 Sodium 133 L Potassium 4.4 Chloride 102 Carbon Dioxide 26 Anion Gap 5 L BUN 25 H Creatinine 1.20 Estim Creat Clear Calc 47 Estimated GFR 60 Glucose 155 H Calcium 8.8 Blood Type B Positive Antibody Screen Negative Discharge Plan Discharge Patient Disposition: Home, Self-Care Discharge Instructions: REINALDO RIDDLE M.D [facility], [place] [id number] [place] [address] POST-OPERATIVE DISCHARGE INSTRUCTIONS TOTAL KNEE ARTHROPLASTY 1. When resting, lie on back with leg elevated above heart to minimize swelling. Significant swelling could indicate a blood clot and if this occurs call the office (or go to the ER) to have a venous ultrasound. 2. Do exercise 5 times a day. 3. Do not sit with leg down except for meals. 4. Wound Care: Nursing will give additional dressings at discharge. Patient to change dressing at home 1 week from surgery, then maintain until seen in office. 5. May shower with dressing in place. 6. Follow weight bearing status instructions. IMPORTANT: Remember not to sit in the chair for more than 30 minutes at a time. As a rule, during the first 14 days after surgery, only sit in the chair to work on the chair knee bending stretch exercise, for meals or for use of the restroom. Sitting in the chair promotes significant swelling in the knee and leg which will make the knee stiff and more painful and which simulates having a blood clot in the veins of the leg. If this type of significant diffuse swelling occurs, an ultrasound at the hospital will be necessary to rule out a blood clot. Be up walking around with the walker for a few minutes every hour while awake and then rest laying on your back on the couch or in bed with your leg elevated on cushions or pillows. Do not rest in the chair. Stand Alone Forms: General Discharge Instructions Follow-up/Referrals: Reinaldo Riddle MD [Physician] - Keep Reg. Scheduled Appt. Discharge Medications: New Eliquis 2.5 mg Tablet 2
[2023-02-18 08:00] VITALS: PULSE 68; RESP 16; O2SAT 99
[2023-02-18] MEDS: SENNA/DOCUSATE SODIUM TABLET 2 TAB PO (09:34)
[2023-02-18] MEDS: oxyCODONE HCL (*CRX) 5 MG TAB IR 10 MG PO (09:34)
[2023-02-18] MEDS: ROSUVASTATIN 10 MG TABLET 20 MG PO (09:34)
[2023-02-18] MEDS: MULTIVITAMINS THERAPEUTIC TAB (*BKC) 1 TABLET PO (09:34)
[2023-02-18] MEDS: APIXABAN 2.5 MG TABLET PO (09:34)
[2023-02-18] MEDS: ASPIRIN 81 MG CHEWABLE TABLET PO (09:35)
[2023-02-18] MEDS: SILDENAFIL CITRATE 20 MG TABLET PO (09:35)
[2023-02-18] MEDS: VANCOMYCIN 1,000 MG/NS 250 ML 1,000 MG/250 ML BAG 250 MG IVPB (09:40)
[2023-02-18] MEDS: ramipriL 5 MG CAPSULE PO (09:43)
[2023-02-18 10:03] VITALS: BP 102/61; PULSE 58; RESP 16; TEMP 36.4; O2SAT 99
--- NOTE | 2023-02-18 11:52 | WPDANESPN ---
Anes - Prog Note Post-Op Date/Time: 02/18/23 11:52 Cardiovascular status: normal Respiratory status: normal Airway patency: baseline Mental status: baseline Post-Op hydration status: normal Vital Signs: Last Vital Signs Temp 35.8 C L 02/18/23 06:03 Pulse 68 02/18/23 08:00 Resp 16 02/18/23 08:00 BP 121/58 L 02/18/23 06:03 Pulse Ox 99 02/18/23 08:00 O2 Del Method Room Air 02/18/23 09:43 O2 Flow Rate 8 02/17/23 15:10 Pain Score (VAS): 07/17 I/O: Intake & Output 02/17/23 02/18/23 02/18/23 23:59 07:59 15:59 Intake Total 1050 150 250 Output Total 2 Balance 1050 148 250 Laboratory Tests 02/18/23 06:40 02/18/23 06:40 02/18/23 06:40 WBC 12.1 H RBC 4.17 L Hgb 12.1 L Hct 37.6 L MCV 90.2 MCH 29.0 MCHC 32.2 RDW 14.1 Plt Count 162 MPV 9.3 Immature Gran % (Auto) 0.5 Neut % (Auto) 86.7 H Lymph % (Auto) 6.6 L [place] % (Auto) 6.0 Eos % (Auto) 0.0 Baso % (Auto) 0.2 Lymph # (Auto) 0.80 L [place] # (Auto) 0.7 H Eos # (Auto) 0.0 Baso # (Auto) 0.0 Abs Immat Gran (auto) 0.06 H Absolute Neuts (auto) 10.5 H Absolute Nucleated RBC 0.0 Nucleated RBC % 0.0 Sodium 133 L Potassium 4.4 Chloride 102 Carbon Dioxide 26 Anion Gap 5 L BUN 25 H Creatinine 1.20 Estim Creat Clear Calc 47 Estimated GFR 60 Glucose 155 H Calcium 8.8 Post-procedural complaints: none Patient Feedback: Patient satisfied with anesthetic care.
== END 2023-02-18 14:45 | disposition home or self-care (01) ==
LOC: ANHSURGERY 09:19 → ANH3MEDSUR 16:58
PROVIDERS: PCP Internal Medicine; Visit Provider Orthopaedic Surgery
PROC: (CPT 27447; principal; 2023-02-17 11:30)
DX: M17.12 Unilateral primary osteoarthritis, left knee (principal); I10 Essential (primary) hypertension; E78.5 Hyperlipidemia, unspecified; Z87.891 Personal history of nicotine dependence; Z79.82 Long term (current) use of aspirin
CPT/HCPCS: 27447; 36415; 73560; 80048; 85025; 86850; 86900; 86901; 97110; 97116; 97161; 97165; A9270; C1713; C1776; J0171; J0690; J1170; J1885; J2250; J2270; J2405; J2704; J2795; J3010; J3370; J7120